=== PATIENT | female | born 1940 | race Caucasian/White ===

== ENCOUNTER 2019-04-02 18:15 | Inpatient (IN) ==
[2019-04-02] MEDS ORDERED: VANCOMYCIN INJ 1,000 MG in SODIUM CHLORIDE 0.9% 250 ML IV ONE (19:30)
[2019-04-02] MEDS ORDERED: VANCOMYCIN 1,000 MG VIAL ONE (20:04)
[2019-04-02 20:17] LABS: Basophils # 0.1 10*3/uL (0.0-0.2); Basophils % 0.4 % (0.0-0.8); Eosinophils # 0.1 10*3/uL (0.0-0.87); Eosinophils % 0.4 % (0.00-10.9); Hematocrit 30.4 VOL% (35.7-47.0); Hemoglobin 10.1 GM/DL (12.0-16.0); Immature Granulocytes % 0.6 %; Lymphocytes # 3.3 10*3/uL (1.4-4.0); Lymphocytes % 19.2 % (21.3-54.2); Mean Corpuscular HGB Conc 33.2 GM/DL (32-36); Mean Corpuscular Volume 94.1 FL (87-102); Mean Platelet Volume 9.9 FL (9.6-12.0); Monocytes % 9.4 % (1.7-12.7); Platelet Count 282 T/CUMM (130-400); Red Blood Count 3.23 MC/CUMM (3.8-5.5); Red Cell Distribution Width 12.9 % (9.3-17.3); White Blood Count 17.4 T/CUMM (4-12)
[2019-04-02 20:35] LABS: Osmolality,Calculated 265.8 MOS/KG (273-304)
[2019-04-02] MEDS ORDERED: ASPIRIN EC 325 MG TABLET PO STA (23:54)
[2019-04-03] MEDS ORDERED: SODIUM CHLORIDE 0.9% 1,000 ML IV STA (01:11)
[2019-04-03] MEDS ORDERED: ONDANSETRON 4 MG/2 ML VIAL IV PRN (02:20)
[2019-04-03] MEDS ORDERED: ACETAMINOPHEN 325 MG TABLET PO PRN (02:20)
[2019-04-03] MEDS ORDERED: HYDROmorphone 2 MG/1 ML VIAL IV PRN (02:20)
[2019-04-03] MEDS ORDERED: PROMETHAZINE INJ 12.5 MG in SODIUM CHLORIDE 0.9% 50 ML IV PRN (02:20)
[2019-04-03] MEDS: SODIUM CHLORIDE 0.9% 1,000 ML IV SCH ×4 (02:33→21:32)
[2019-04-03] MEDS: PIPERACILLIN/TAZOBACTAM 3,375 MG in SODIUM CHLORIDE 0.9% 100 ML IV SCH ×2 (02:33→09:44)
[2019-04-03 06:36] LABS: Basophils # 0.1 10*3/uL (0.0-0.2); Basophils % 0.5 % (0.0-0.8); Eosinophils % 0.1 % (0.00-10.9); Hematocrit 27.7 VOL% (35.7-47.0); Hemoglobin 9.3 GM/DL (12.0-16.0); Immature Granulocytes % 0.5 %; Immature Granulocytes Absolute 0.08 #; Lymphocytes # 3.6 10*3/uL (1.4-4.0); Lymphocytes % 20.5 % (21.3-54.2); Mean Corpuscular HGB Conc 33.6 GM/DL (32-36); Mean Corpuscular Volume 94.2 FL (87-102); Mean Platelet Volume 10.2 FL (9.6-12.0); Monocytes % 10.2 % (1.7-12.7); Neutrophils % 68.2 % (38.7-73.9); Platelet Count 255 T/CUMM (130-400); Red Blood Count 2.94 MC/CUMM (3.8-5.5); Red Cell Distribution Width 12.8 % (9.3-17.3); White Blood Count 17.4 T/CUMM (4-12)
[2019-04-03 06:53] LABS: Albumin 2.7 G/DL (3.4-5.0); Bilirubin,Total 1.1 MG/DL (0.2-1.0); Calcium 8.4 MG/DL (8.5-10.1); Osmolality,Calculated 272.2 MOS/KG (273-304); Total Protein 9.2 G/DL (6.4-8.3)
[2019-04-03] MEDS: POTASSIUM CHLORIDE 20 MEQ TABLET PO PRN (09:45)
[2019-04-03] MEDS: ENOXAPARIN 40 MG/0.4 ML SYRINGE SUBCUT SCH (09:45)
[2019-04-03] MEDS: cefTRIAXone 1,000 MG in SYRINGE 1 EACH IV SCH (12:07)
[2019-04-03] MEDS ORDERED: VANCOMYCIN INJ 1,000 MG in SODIUM CHLORIDE 0.9% 250 ML IV SCH (16:00)
[2019-04-04] MEDS: SODIUM CHLORIDE 0.9% 1,000 ML IV SCH (02:00)
[2019-04-04 06:19] LABS: Basophils # 0.1 10*3/uL (0.0-0.2); Basophils % 0.7 % (0.0-0.8); Eosinophils # 0.3 10*3/uL (0.0-0.87); Eosinophils % 2.1 % (0.00-10.9); Hematocrit 28.5 VOL% (35.7-47.0); Hemoglobin 9.4 GM/DL (12.0-16.0); Immature Granulocytes % 0.4 %; Immature Granulocytes Absolute 0.06 #; Lymphocytes # 3.3 10*3/uL (1.4-4.0); Lymphocytes % 21.2 % (21.3-54.2); Mean Corpuscular Volume 96.3 FL (87-102); Monocytes % 9.5 % (1.7-12.7); Neutrophils % 66.1 % (38.7-73.9); Platelet Count 258 T/CUMM (130-400); Red Blood Count 2.96 MC/CUMM (3.8-5.5); Red Cell Distribution Width 12.9 % (9.3-17.3); White Blood Count 15.3 T/CUMM (4-12)
[2019-04-04 06:28] LABS: Calcium 8.3 MG/DL (8.5-10.1); Osmolality,Calculated 270.1 MOS/KG (273-304)
[2019-04-04] MEDS: ENOXAPARIN 40 MG/0.4 ML SYRINGE SUBCUT SCH (11:43)
[2019-04-04] MEDS: cefTRIAXone 1,000 MG in SYRINGE 1 EACH IV SCH (11:44)
[2019-04-04] MEDS: FLUTICASONE 50 MCG NASAL SPRAY 16 GM BOTTLE BOTH NARES SCH ×2 (15:51→21:53)
[2019-04-05 05:43] LABS: Basophils # 0.1 10*3/uL (0.0-0.2); Basophils % 0.8 % (0.0-0.8); Eosinophils # 0.5 10*3/uL (0.0-0.87); Eosinophils % 3.7 % (0.00-10.9); Hematocrit 27.5 VOL% (35.7-47.0); Hemoglobin 8.9 GM/DL (12.0-16.0); Immature Granulocytes % 0.4 %; Immature Granulocytes Absolute 0.05 #; Lymphocytes # 3.8 10*3/uL (1.4-4.0); Lymphocytes % 30.7 % (21.3-54.2); Mean Corpuscular HGB Conc 32.4 GM/DL (32-36); Mean Corpuscular Volume 94.8 FL (87-102); Mean Platelet Volume 10.1 FL (9.6-12.0); Monocytes % 9.7 % (1.7-12.7); Neutrophils % 54.7 % (38.7-73.9); Platelet Count 269 T/CUMM (130-400); Red Cell Distribution Width 12.4 % (9.3-17.3); White Blood Count 12.3 T/CUMM (4-12)
[2019-04-05] MEDS: FLUTICASONE 50 MCG NASAL SPRAY 16 GM BOTTLE BOTH NARES SCH ×2 (08:48→21:42)
[2019-04-05] MEDS: cefTRIAXone 1,000 MG in SYRINGE 1 EACH IV SCH (08:48)
[2019-04-05] MEDS: ENOXAPARIN 40 MG/0.4 ML SYRINGE SUBCUT SCH (08:48)
[2019-04-06 06:56] LABS: Basophils # 0.1 10*3/uL (0.0-0.2); Basophils % 1.1 % (0.0-0.8); Eosinophils # 0.4 10*3/uL (0.0-0.87); Eosinophils % 4.1 % (0.00-10.9); Hematocrit 28.2 VOL% (35.7-47.0); Hemoglobin 9.5 GM/DL (12.0-16.0); Immature Granulocytes % 0.3 %; Immature Granulocytes Absolute 0.03 #; Lymphocytes % 32.3 % (21.3-54.2); Mean Corpuscular HGB Conc 33.7 GM/DL (32-36); Mean Corpuscular Volume 93.4 FL (87-102); Mean Platelet Volume 9.9 FL (9.6-12.0); Monocytes % 10.9 % (1.7-12.7); Neutrophils % 51.3 % (38.7-73.9); Platelet Count 304 T/CUMM (130-400); Red Blood Count 3.02 MC/CUMM (3.8-5.5); Red Cell Distribution Width 12.3 % (9.3-17.3); White Blood Count 9.2 T/CUMM (4-12)
[2019-04-06 07:22] LABS: Albumin 2.6 G/DL (3.4-5.0); Bilirubin,Total 1.2 MG/DL (0.2-1.0); Calcium 8.9 MG/DL (8.5-10.1); Osmolality,Calculated 267.1 MOS/KG (273-304); Total Protein 9.8 G/DL (6.4-8.3)
[2019-04-06] MEDS: cefTRIAXone 1,000 MG in SYRINGE 1 EACH IV SCH (09:17)
[2019-04-06] MEDS: CHOLECALCIFEROL 5,000 UNIT TABLET PO SCH (09:18)
[2019-04-06] MEDS: OMEGA 3 ACID ETHYL ESTERS 1 GM CAPSULE PO SCH (09:18)
[2019-04-06] MEDS: DILTIAZEM CD 180 MG CAPSULE PO SCH (09:19)
[2019-04-06] MEDS: FLUTICASONE 50 MCG NASAL SPRAY 16 GM BOTTLE BOTH NARES SCH ×2 (09:19→20:08)
[2019-04-06] MEDS: ENOXAPARIN 40 MG/0.4 ML SYRINGE SUBCUT SCH (09:21)
[2019-04-06] MEDS: OLMESARTAN 20 MG TABLET PO SCH (15:11)
[2019-04-06] MEDS: hydroCHLOROthiazide 12.5 MG CAPSULE PO SCH (15:13)
[2019-04-07 07:14] LABS: Calcium 9.1 MG/DL (8.5-10.1); Osmolality,Calculated 267.1 MOS/KG (273-304)
[2019-04-07 07:19] LABS: Alanine Aminotransferase < 9 U/L (13-56); Albumin 2.8 G/DL (3.4-5.0); Alkaline Phosphatase 57 U/L (45-117); Aspartate Amino Transferase 11 U/L (0-37); Bilirubin,Total < 0.39 MG/DL (0.2-1.0); Blood Urea Nitrogen 10 MG/DL (7-18); Calcium 8.7 MG/DL (8.5-10.1); Estimated Glom Filtration Rate 58 ML/MIN; Glucose 93 MG/DL (74-106); Osmolality,Calculated 268.1 MOS/KG (273-304); Total Protein 10.4 G/DL (6.4-8.3)
[2019-04-07] MEDS: hydroCHLOROthiazide 12.5 MG CAPSULE PO SCH (08:39)
[2019-04-07] MEDS: CHOLECALCIFEROL 5,000 UNIT TABLET PO SCH (08:39)
[2019-04-07] MEDS: OMEGA 3 ACID ETHYL ESTERS 1 GM CAPSULE PO SCH (08:40)
[2019-04-07] MEDS: cefTRIAXone 1,000 MG in SYRINGE 1 EACH IV SCH (08:40)
[2019-04-07] MEDS: DILTIAZEM CD 180 MG CAPSULE PO SCH (08:40)
[2019-04-07] MEDS: POTASSIUM CHLORIDE 20 MEQ TABLET PO PRN ×2 (08:40→17:41)
[2019-04-07] MEDS: ENOXAPARIN 40 MG/0.4 ML SYRINGE SUBCUT SCH (08:41)
[2019-04-07] MEDS: FLUTICASONE 50 MCG NASAL SPRAY 16 GM BOTTLE BOTH NARES SCH ×2 (08:41→21:04)
[2019-04-07] MEDS: OLMESARTAN 20 MG TABLET PO SCH (08:42)
[2019-04-07 09:46] LABS: Basophils # 0.1 10*3/uL (0.0-0.2); Basophils % 1.3 % (0.0-0.8); Eosinophils # 0.4 10*3/uL (0.0-0.87); Eosinophils % 4.7 % (0.00-10.9); Hematocrit 31.5 VOL% (35.7-47.0); Hemoglobin 9.9 GM/DL (12.0-16.0); Immature Granulocytes % 0.3 %; Immature Granulocytes Absolute 0.03 #; Lymphocytes # 3.6 10*3/uL (1.4-4.0); Mean Corpuscular HGB Conc 31.4 GM/DL (32-36); Mean Corpuscular Volume 96.3 FL (87-102); Mean Platelet Volume 10.2 FL (9.6-12.0); Monocytes % 9.7 % (1.7-12.7); Platelet Count 332 T/CUMM (130-400); Red Blood Count 3.27 MC/CUMM (3.8-5.5); Red Cell Distribution Width 12.5 % (9.3-17.3); White Blood Count 9.4 T/CUMM (4-12)
[2019-04-08 04:59] VITALS: BP 135/81
[2019-04-08 06:41] LABS: Basophils # 0.1 10*3/uL (0.0-0.2); Basophils % 1.1 % (0.0-0.8); Eosinophils # 0.4 10*3/uL (0.0-0.87); Eosinophils % 4.7 % (0.00-10.9); Hematocrit 31.5 VOL% (35.7-47.0); Hemoglobin 9.5 GM/DL (12.0-16.0); Immature Granulocytes % 0.3 %; Immature Granulocytes Absolute 0.03 #; Lymphocytes # 3.9 10*3/uL (1.4-4.0); Lymphocytes % 41.5 % (21.3-54.2); Mean Corpuscular HGB Conc 30.2 GM/DL (32-36); Mean Corpuscular Volume 99.4 FL (87-102); Mean Platelet Volume 9.9 FL (9.6-12.0); Monocytes % 9.4 % (1.7-12.7); Platelet Count 328 T/CUMM (130-400); Red Blood Count 3.17 MC/CUMM (3.8-5.5); Red Cell Distribution Width 12.5 % (9.3-17.3); White Blood Count 9.4 T/CUMM (4-12)
[2019-04-08 07:01] LABS: Eosinophils 7 % (0-10); Hypochromasia 1+; Lymphocytes 34 % (20-55); Ovalocytes Slight; Platelet Estimate Adequate; Segmented Neutrophils 46 % (50-85); Total Cells Counted 100
[2019-04-08 07:08] LABS: Albumin 2.6 G/DL (3.4-5.0); Bilirubin,Total 1.1 MG/DL (0.2-1.0); Calcium 9.1 MG/DL (8.5-10.1); Osmolality,Calculated 265.2 MOS/KG (273-304); Total Protein 10.2 G/DL (6.4-8.3)
[2019-04-08] MEDS: ENOXAPARIN 40 MG/0.4 ML SYRINGE SUBCUT SCH (08:23)
[2019-04-08] MEDS: OLMESARTAN 20 MG TABLET PO SCH (08:23)
[2019-04-08] MEDS: CHOLECALCIFEROL 5,000 UNIT TABLET PO SCH (08:23)
[2019-04-08] MEDS: OMEGA 3 ACID ETHYL ESTERS 1 GM CAPSULE PO SCH (08:23)
[2019-04-08] MEDS: DILTIAZEM CD 180 MG CAPSULE PO SCH (08:23)
[2019-04-08] MEDS: hydroCHLOROthiazide 12.5 MG CAPSULE PO SCH (08:23)
[2019-04-08] MEDS: FLUTICASONE 50 MCG NASAL SPRAY 16 GM BOTTLE BOTH NARES SCH (08:26)
[2019-04-08] MEDS: cefTRIAXone 1,000 MG in SYRINGE 1 EACH IV SCH (08:26)
== END 2019-04-08 10:20 | disposition home or self-care (01) | DRG 603 ==
LOC: N.ED 18:15 → N.EDINP 04-03 00:52 → SUATTDRO 04-03 00:52 → N.2E 04-03 01:16
PROVIDERS: ADMIT Internal Medicine; ATTEND Internal Medicine

== ENCOUNTER 2019-12-21 09:50 | Inpatient (IN) ==
[2019-12-21 10:47] LABS: Basophils # 0.1 10*3/uL (0.0-0.2); Basophils % 0.7 % (0.0-0.8); Eosinophils % 0.1 % (0.00-10.9); Hemoglobin 8.2 GM/DL (12.0-16.0); Immature Granulocytes % 0.4 %; Immature Granulocytes Absolute 0.05 #; Lymphocytes # 2.4 10*3/uL (1.4-4.0); Lymphocytes % 19.4 % (21.3-54.2); Mean Corpuscular HGB Conc 32.8 GM/DL (32-36); Mean Corpuscular Volume 96.9 FL (87-102); Mean Platelet Volume 8.9 FL (9.6-12.0); Monocytes % 6.4 % (1.7-12.7); Platelet Count 405 T/CUMM (130-400); Red Blood Count 2.58 MC/CUMM (3.8-5.5); Red Cell Distribution Width 13.4 % (9.3-17.3); White Blood Count 12.4 T/CUMM (4-12)
[2019-12-21 11:01] LABS: Alanine Aminotransferase < 6 U/L (13-56); Albumin 2.4 G/DL (3.4-5.0); Alkaline Phosphatase 62 U/L (45-117); Amylase 32 U/L (25-115); Aspartate Amino Transferase 22 U/L (0-37); Bilirubin,Total < 0.39 MG/DL (0.2-1.0); Blood Urea Nitrogen 13 MG/DL (7-18); Calcium 9.1 MG/DL (8.5-10.1); Estimated Glom Filtration Rate 39 ML/MIN; Glucose 107 MG/DL (74-106); Osmolality,Calculated 267.2 MOS/KG (273-304)
[2019-12-21] MEDS ORDERED: SODIUM CHLORIDE 0.9% 1,000 ML IV STA (12:04)
[2019-12-21] MEDS ORDERED: ONDANSETRON 4 MG/2 ML VIAL IV STA (12:08)
[2019-12-21] MEDS ORDERED: MORPHINE 4 MG/1 ML VIAL IV ONE (12:08)
[2019-12-21 12:14] LABS: Bacteria,Urine Occasional /HPF (Few); Bilirubin,Urine Negative (Negative); Blood, Urine Small mg/dL (Negative); Glucose,Urine (UA) Negative (Negative); Hyaline Casts,Urine 3 /LPF (0-3); Ketones,Urine Negative (Negative); Mucus,Urine Occasional /LPF (Occasional); Nitrite,Urine Negative (Negative); Protein,Urine Negative; RBC,Urine 15 /HPF (0-4); Squamous Epithelial Cell,Urine Occasional /HPF (0-10); Urine Appearance CLEAR (Clear); Urine Color Yellow (Yellow); Urine Specific Gravity > 1.060 (1.001-1.035); Urine Urobilinogen < 2.0 EU/DL (0.2-1.0); WBC,Urine <1 /HPF (0-6)
[2019-12-21] MEDS ORDERED: LACTULOSE 20 GM/30 ML UDCUP PO PRN (14:07)
[2019-12-21] MEDS ORDERED: MORPHINE 4 MG/1 ML VIAL IV PRN (14:07)
[2019-12-21] MEDS ORDERED: LOPERAMIDE 2 MG CAPSULE PO PRN ×2 (14:07)
[2019-12-21] MEDS ORDERED: ALUMINUM/MAGNES/SIMETH MAX STR 30 ML UDCUP PO PRN (14:07)
[2019-12-21] MEDS ORDERED: MYLANTA/LIDO VISC 2:1 300 ML BOTTLE SWISH/SWAL PRN (14:07)
[2019-12-21] MEDS ORDERED: ACETAMINOPHEN 325 MG TABLET PO PRN (14:07)
[2019-12-21] MEDS ORDERED: TEMAZEPAM 7.5 MG CAPSULE PO PRN (14:07)
[2019-12-21] MEDS ORDERED: BENZTROPINE 2 MG/2 ML AMP IV PRN (14:07)
[2019-12-21] MEDS ORDERED: MYLANTA/LIDO VISC 2:1 300 ML BOTTLE SWISH/SPIT PRN (14:07)
[2019-12-21] MEDS ORDERED: diphenhydrAMINE CAP 25 MG CAPSULE PO PRN (14:07)
[2019-12-21] MEDS: SODIUM CHLORIDE 0.45% 1,000 ML IV SCH (14:39)
[2019-12-21] MEDS: traMADol 50 MG TABLET PO PRN ×2 (14:41→20:18)
[2019-12-21] MEDS: MORPHINE 4 MG/1 ML VIAL IV PRN (18:19)
[2019-12-21] MEDS: ALPRAZolam 0.25 MG TABLET PO PRN (20:20)
[2019-12-22 06:45] LABS: Basophils # 0.1 10*3/uL (0.0-0.2); Basophils % 0.9 % (0.0-0.8); Eosinophils # 0.1 10*3/uL (0.0-0.87); Eosinophils % 1.1 % (0.00-10.9); Hemoglobin 7.1 GM/DL (12.0-16.0); Immature Granulocytes % 0.5 %; Immature Granulocytes Absolute 0.06 #; Lymphocytes % 24.8 % (21.3-54.2); Mean Corpuscular HGB Conc 32.3 GM/DL (32-36); Mean Corpuscular Volume 98.2 FL (87-102); Neutrophils % 59.7 % (38.7-73.9); Platelet Count 342 T/CUMM (130-400); Red Blood Count 2.24 MC/CUMM (3.8-5.5); Red Cell Distribution Width 13.6 % (9.3-17.3); White Blood Count 12.2 T/CUMM (4-12)
[2019-12-22 07:24] LABS: Alanine Aminotransferase < 6 U/L (13-56); Albumin 1.9 G/DL (3.4-5.0); Alkaline Phosphatase 53 U/L (45-117); Aspartate Amino Transferase 17 U/L (0-37); Blood Urea Nitrogen 17 MG/DL (7-18); Calcium 8.4 MG/DL (8.5-10.1); Estimated Glom Filtration Rate 39 ML/MIN; Glucose 80 MG/DL (74-106); Total Protein 9.1 G/DL (6.4-8.3)
[2019-12-22] MEDS: SODIUM CHLORIDE 0.45% 1,000 ML IV SCH (11:57)
[2019-12-22] MEDS: traMADol 50 MG TABLET PO PRN (15:33)
[2019-12-22] MEDS: MORPHINE 4 MG/1 ML VIAL IV PRN (17:01)
[2019-12-22] MEDS: ONDANSETRON 4 MG/2 ML VIAL IV PRN (17:02)
[2019-12-23 08:21] LABS: Basophils # 0.1 10*3/uL (0.0-0.2); Basophils % 0.5 % (0.0-0.8); Eosinophils % 0.2 % (0.00-10.9); Hematocrit 22.2 VOL% (35.7-47.0); Immature Granulocytes % 0.7 %; Immature Granulocytes Absolute 0.12 #; Lymphocytes # 2.9 10*3/uL (1.4-4.0); Lymphocytes % 18.1 % (21.3-54.2); Mean Corpuscular HGB Conc 31.5 GM/DL (32-36); Mean Corpuscular Volume 98.7 FL (87-102); Mean Platelet Volume 9.5 FL (9.6-12.0); Monocytes % 10.6 % (1.7-12.7); Neutrophils % 69.9 % (38.7-73.9); Platelet Count 330 T/CUMM (130-400); Red Blood Count 2.25 MC/CUMM (3.8-5.5); Red Cell Distribution Width 13.4 % (9.3-17.3); White Blood Count 16.1 T/CUMM (4-12)
[2019-12-23 08:35] LABS: Alanine Aminotransferase < 6 U/L (13-56); Albumin 1.9 G/DL (3.4-5.0); Alkaline Phosphatase 59 U/L (45-117); Aspartate Amino Transferase 17 U/L (0-37); Blood Urea Nitrogen 16 MG/DL (7-18); Calcium 8.2 MG/DL (8.5-10.1); Estimated Glom Filtration Rate 56 ML/MIN; Glucose 99 MG/DL (74-106); Osmolality,Calculated 268.2 MOS/KG (273-304); Total Protein 9.4 G/DL (6.4-8.3)
[2019-12-23] MEDS: MAGNESIUM HYDROXIDE SUSP 30 ML UDCUP PO PRN (08:50)
[2019-12-23] MEDS: MORPHINE 4 MG/1 ML VIAL IV PRN ×3 (08:55→22:10)
[2019-12-23] MEDS: ONDANSETRON 4 MG/2 ML VIAL IV PRN ×2 (08:56→16:56)
[2019-12-23 09:33] LABS: Immunoglobulin A < 31 MG/DL (70-400); Immunoglobulin G 5090 MG/DL (700-1600); Immunoglobulin M < 21 MG/DL (40-230)
[2019-12-23] MEDS: SODIUM CHLORIDE 0.45% 1,000 ML IV SCH (11:07)
[2019-12-23] MEDS ORDERED: PROMETHAZINE INJ 25 MG in SODIUM CHLORIDE 0.9% 50 ML IV PRN (12:24)
[2019-12-24 08:57] LABS: Basophils # 0.1 10*3/uL (0.0-0.2); Basophils % 0.5 % (0.0-0.8); Eosinophils # 0.1 10*3/uL (0.0-0.87); Eosinophils % 0.4 % (0.00-10.9); Hematocrit 21.8 VOL% (35.7-47.0); Hemoglobin 7.3 GM/DL (12.0-16.0); Immature Granulocytes % 0.8 %; Immature Granulocytes Absolute 0.14 #; Lymphocytes # 2.5 10*3/uL (1.4-4.0); Lymphocytes % 14.4 % (21.3-54.2); Mean Corpuscular HGB Conc 33.5 GM/DL (32-36); Mean Corpuscular Volume 96.5 FL (87-102); Monocytes % 10.2 % (1.7-12.7); NRBC # 0.02 10*3/uL; Neutrophils % 73.7 % (38.7-73.9); Platelet Count 328 T/CUMM (130-400); Red Blood Count 2.26 MC/CUMM (3.8-5.5); Red Cell Distribution Width 13.2 % (9.3-17.3); White Blood Count 17.1 T/CUMM (4-12)
[2019-12-24 09:08] LABS: Immunoglobulin A (Chem) < 31 MG/DL (70-400); Immunoglobulin G (Chem) 5090 MG/DL (700-1600)
[2019-12-24 09:09] LABS: Immunoglobulin M (Chem) < 21 MG/DL (40-230)
[2019-12-24 09:19] LABS: Alanine Aminotransferase < 6 U/L (13-56); Albumin 1.7 G/DL (3.4-5.0); Alkaline Phosphatase 65 U/L (45-117); Aspartate Amino Transferase 17 U/L (0-37); Blood Urea Nitrogen 14 MG/DL (7-18); Estimated Glom Filtration Rate 56 ML/MIN; Glucose 104 MG/DL (74-106); Osmolality,Calculated 264.5 MOS/KG (273-304); Total Protein 9.4 G/DL (6.4-8.3)
[2019-12-24] MEDS: ONDANSETRON 4 MG/2 ML VIAL IV PRN (11:07)
[2019-12-24] MEDS: MORPHINE 4 MG/1 ML VIAL IV PRN ×4 (11:11→21:23)
[2019-12-24] MEDS: MAGNESIUM HYDROXIDE SUSP 30 ML UDCUP PO PRN (11:12)
[2019-12-24] MEDS: SODIUM CHLORIDE 0.45% 1,000 ML IV SCH ×2 (18:04→22:01)
[2019-12-25] MEDS: SODIUM CHLORIDE 0.45% 1,000 ML IV SCH ×3 (06:04→20:29)
[2019-12-25 06:44] LABS: Basophils # 0.1 10*3/uL (0.0-0.2); Basophils % 0.5 % (0.0-0.8); Eosinophils # 0.1 10*3/uL (0.0-0.87); Eosinophils % 0.6 % (0.00-10.9); Hematocrit 22.1 VOL% (35.7-47.0); Hemoglobin 7.1 GM/DL (12.0-16.0); Immature Granulocytes % 0.9 %; Immature Granulocytes Absolute 0.15 #; Lymphocytes # 2.5 10*3/uL (1.4-4.0); Lymphocytes % 15.2 % (21.3-54.2); Mean Corpuscular HGB Conc 32.1 GM/DL (32-36); Mean Corpuscular Volume 96.5 FL (87-102); Mean Platelet Volume 9.6 FL (9.6-12.0); Monocytes % 10.2 % (1.7-12.7); NRBC # 0.03 10*3/uL; Neutrophils % 72.6 % (38.7-73.9); Platelet Count 361 T/CUMM (130-400); Red Blood Count 2.29 MC/CUMM (3.8-5.5); Red Cell Distribution Width 13.2 % (9.3-17.3); White Blood Count 16.3 T/CUMM (4-12)
[2019-12-25 06:47] LABS: Alanine Aminotransferase < 6 U/L (13-56); Albumin 1.7 G/DL (3.4-5.0); Alkaline Phosphatase 65 U/L (45-117); Aspartate Amino Transferase 19 U/L (0-37); Blood Urea Nitrogen 15 MG/DL (7-18); Calcium 8.2 MG/DL (8.5-10.1); Estimated Glom Filtration Rate 56 ML/MIN; Glucose 90 MG/DL (74-106); Osmolality,Calculated 262.7 MOS/KG (273-304); Total Protein 9.5 G/DL (6.4-8.3)
[2019-12-25] MEDS: MORPHINE 4 MG/1 ML VIAL IV PRN ×2 (09:24→17:45)
[2019-12-25] MEDS ORDERED: SODIUM CHLORIDE 0.9% 1,000 ML IV PRN (10:29)
[2019-12-26] MEDS: MORPHINE 4 MG/1 ML VIAL IV PRN ×5 (02:54→19:18)
[2019-12-26 05:26] LABS: Total Protein (Chem) 9.3 G/DL (6.4-8.3)
[2019-12-26 05:34] LABS: Mean Platelet Volume 8.9 FL (9.6-12.0); NRBC # 0.03 10*3/uL
[2019-12-26 05:46] LABS: Basophils # 0.1 10*3/uL (0.0-0.2); Basophils % 0.7 % (0.0-0.8); Eosinophils # 0.1 10*3/uL (0.0-0.87); Eosinophils % 1.1 % (0.00-10.9); Hematocrit 26.9 VOL% (35.7-47.0); Immature Granulocytes Absolute 0.13 #; Lymphocytes # 2.1 10*3/uL (1.4-4.0); Lymphocytes % 15.5 % (21.3-54.2); Mean Corpuscular HGB Conc 33.8 GM/DL (32-36); Mean Corpuscular Volume 91.8 FL (87-102); Monocytes % 11.3 % (1.7-12.7); Neutrophils % 70.4 % (38.7-73.9); Platelet Count 299 T/CUMM (130-400); Red Cell Distribution Width 14.2 % (9.3-17.3); White Blood Count 13.3 T/CUMM (4-12)
[2019-12-26 05:49] LABS: Hemoglobin 9.1 GM/DL (12.0-16.0); Red Blood Count 2.93 MC/CUMM (3.8-5.5)
[2019-12-26 06:01] LABS: Alanine Aminotransferase < 6 U/L (13-56); Albumin 1.5 G/DL (3.4-5.0); Alkaline Phosphatase 60 U/L (45-117); Aspartate Amino Transferase 18 U/L (0-37); Blood Urea Nitrogen 16 MG/DL (7-18); Calcium 7.9 MG/DL (8.5-10.1); Estimated Glom Filtration Rate 64 ML/MIN; Glucose 83 MG/DL (74-106); Osmolality,Calculated 263.5 MOS/KG (273-304)
[2019-12-26 08:52] LABS: Albumin (SPE) 2.3 G/DL (3.2-5.3); Albumin (SPE) Rel % 25.1 %; Alpha 1 (SPE) 0.4 G/DL (0.1-0.4); Alpha 1 (SPE) Rel % 4.7 %; Alpha 2 (SPE) 0.9 G/DL (0.4-1.0); Alpha 2 (SPE) Rel % 9.7 %; Beta (SPE) 0.7 G/DL (0.5-1.1); Beta (SPE) Rel % 7.1 %
[2019-12-26] MEDS ORDERED: HYDROXYCHLOROQUINE 200 MG TABLET PO SCH (09:00)
[2019-12-26] MEDS ORDERED: predniSONE 5 MG TABLET PO SCH (09:00)
[2019-12-26] MEDS ORDERED: DILTIAZEM CD 180 MG CAPSULE PO SCH (09:00)
[2019-12-26 09:02] LABS: Gamma (SPE) Rel % 53.4 %
[2019-12-26] MEDS: SODIUM CHLORIDE 0.45% 1,000 ML IV SCH (09:03)
[2019-12-26] MEDS: DEXT 5% NACL 0.45% KCL 20 MEQ 20 MEQ/1,000 ML BAG IV SCH (09:16)
[2019-12-26] MEDS: fentaNYL 12 MCG/HR PATCH TRANSDERM SCH (10:37)
[2019-12-26 12:29] LABS: Immuno Free Light Chain Lambda 0.16 MG/DL (0.57-2.63)
[2019-12-26] MEDS: ALPRAZolam 0.25 MG TABLET PO PRN (19:18)
[2019-12-26] MEDS: DILTIAZEM CD 180 MG CAPSULE PO SCH (21:20)
[2019-12-26] MEDS: predniSONE 5 MG TABLET PO SCH (21:20)
[2019-12-27 05:44] LABS: Basophils # 0.1 10*3/uL (0.0-0.2); Basophils % 0.5 % (0.0-0.8); Eosinophils # 0.2 10*3/uL (0.0-0.87); Eosinophils % 1.5 % (0.00-10.9); Hematocrit 30.4 VOL% (35.7-47.0); Hemoglobin 10.2 GM/DL (12.0-16.0); Immature Granulocytes % 0.9 %; Immature Granulocytes Absolute 0.13 #; Lymphocytes # 2.6 10*3/uL (1.4-4.0); Lymphocytes % 18.4 % (21.3-54.2); Mean Corpuscular HGB Conc 33.6 GM/DL (32-36); Mean Platelet Volume 9.1 FL (9.6-12.0); Monocytes % 12.1 % (1.7-12.7); Neutrophils % 66.6 % (38.7-73.9); Platelet Count 330 T/CUMM (130-400); Red Blood Count 3.27 MC/CUMM (3.8-5.5); White Blood Count 14.2 T/CUMM (4-12)
[2019-12-27 06:22] LABS: Alanine Aminotransferase < 6 U/L (13-56); Albumin 1.5 G/DL (3.4-5.0); Alkaline Phosphatase 63 U/L (45-117); Aspartate Amino Transferase 18 U/L (0-37); Blood Urea Nitrogen 12 MG/DL (7-18); Estimated Glom Filtration Rate 76 ML/MIN; Glucose 88 MG/DL (74-106); Osmolality,Calculated 258.8 MOS/KG (273-304); Total Protein 9.8 G/DL (6.4-8.3)
[2019-12-27] MEDS: MORPHINE 4 MG/1 ML VIAL IV PRN ×3 (09:31→21:00)
[2019-12-27 12:19] LABS: Immuno Free Light Chain Kappa 106.26 MG/DL (0.33-1.94); Immuno Free Light Chain Ratio 664.13 MG/DL (0.26-1.65)
[2019-12-27] MEDS: DEXT 5% NACL 0.45% KCL 20 MEQ 20 MEQ/1,000 ML BAG IV SCH ×2 (15:21→15:22)
[2019-12-27] MEDS: predniSONE 5 MG TABLET PO SCH (21:01)
[2019-12-27] MEDS: ALPRAZolam 0.25 MG TABLET PO PRN (21:01)
[2019-12-27] MEDS: DILTIAZEM CD 180 MG CAPSULE PO SCH (21:01)
[2019-12-28 06:42] LABS: Basophils # 0.1 10*3/uL (0.0-0.2); Basophils % 0.6 % (0.0-0.8); Eosinophils # 0.4 10*3/uL (0.0-0.87); Eosinophils % 2.6 % (0.00-10.9); Hematocrit 27.3 VOL% (35.7-47.0); Immature Granulocytes % 0.8 %; Immature Granulocytes Absolute 0.11 #; Lymphocytes # 2.6 10*3/uL (1.4-4.0); Lymphocytes % 18.6 % (21.3-54.2); Mean Corpuscular Volume 94.8 FL (87-102); Mean Platelet Volume 9.1 FL (9.6-12.0); Monocytes % 12.8 % (1.7-12.7); Neutrophils % 64.6 % (38.7-73.9); Platelet Count 273 T/CUMM (130-400); Red Blood Count 2.88 MC/CUMM (3.8-5.5); Red Cell Distribution Width 13.6 % (9.3-17.3); White Blood Count 13.9 T/CUMM (4-12)
[2019-12-28] MEDS ORDERED: fentaNYL 100 MCG/2 ML VIAL ONE ×2 (06:42→08:03)
[2019-12-28] MEDS ORDERED: PHENYLEPHRINE 10 MG/1 ML VIAL IV ONE (06:42)
[2019-12-28 06:50] LABS: Alanine Aminotransferase < 6 U/L (13-56); Albumin 1.3 G/DL (3.4-5.0); Alkaline Phosphatase 57 U/L (45-117); Aspartate Amino Transferase 18 U/L (0-37); Blood Urea Nitrogen 10 MG/DL (7-18); Calcium 7.5 MG/DL (8.5-10.1); Estimated Glom Filtration Rate 79 ML/MIN; Glucose 91 MG/DL (74-106); Osmolality,Calculated 258.8 MOS/KG (273-304); Total Protein 8.7 G/DL (6.4-8.3)
[2019-12-28] MEDS ORDERED: BUPIVACAINE MPF 0.25% 30 ML VIAL ONE (07:05)
[2019-12-28] MEDS ORDERED: LIDOCAINE 1% 5 ML VIAL ONE (07:05)
[2019-12-28] MEDS ORDERED: CLINDAMYCIN INJ 50 ML IV ONE (08:00)
[2019-12-28] MEDS ORDERED: LEVOFLOXACIN INJ 100 ML IV ONE (08:03)
[2019-12-28] MEDS ORDERED: SODIUM CHLORIDE 0.9% 1,000 ML IV PRN ×2 (08:12→15:12)
[2019-12-28] MEDS ORDERED: DEXAMETHASONE 4 MG/1 ML VIAL ONE (08:48)
[2019-12-28] MEDS ORDERED: ROCURONIUM 50 MG/5 ML VIAL IV ONE (08:48)
[2019-12-28] MEDS ORDERED: ETOMIDATE 40 MG/20 ML VIAL IV ONE (08:48)
[2019-12-28] MEDS ORDERED: LIDOCAINE 2% 5 ML VIAL ONE (08:48)
[2019-12-28] MEDS ORDERED: SODIUM CHLORIDE 0.9% 1,000 ML IV ONE (08:48)
[2019-12-28] MEDS ORDERED: ONDANSETRON 4 MG/2 ML VIAL ONE (08:48)
[2019-12-28] MEDS ORDERED: SUCCINYLCHOLINE 200 MG/10 ML VIAL ONE (08:48)
[2019-12-28] MEDS ORDERED: LACTATED RINGERS 1,000 ML IV ONE (08:48)
[2019-12-28] MEDS ORDERED: SEVOFLURANE 1 UNIT/15 MINUTE INH ONE (08:55)
[2019-12-28] MEDS ORDERED: SODIUM CHLORIDE 0.9% 100 ML IV ONE (08:55)
[2019-12-28 09:23] LABS: Bilirubin,Urine Negative (Negative); Blood, Urine Negative (Negative); Glucose,Urine (UA) Negative (Negative); Ketones,Urine Negative (Negative); Mucus,Urine Few /LPF (Occasional); Nitrite,Urine Negative (Negative); Protein,Urine Negative; RBC,Urine 2 /HPF (0-4); Urine Appearance CLEAR (Clear); Urine Color Yellow (Yellow); Urine Specific Gravity 1.016 (1.001-1.035); Urine Urobilinogen < 2.0 EU/DL (0.2-1.0); WBC,Urine 1 /HPF (0-6)
[2019-12-28] MEDS ORDERED: BISACODYL 10 MG SUPP RECTAL PRN (09:25)
[2019-12-28] MEDS ORDERED: MAGNESIUM HYDROXIDE SUSP 30 ML UDCUP PO PRN (09:25)
[2019-12-28] MEDS ORDERED: ONDANSETRON 4 MG/2 ML VIAL IV PRN (09:25)
[2019-12-28] MEDS ORDERED: BENZOCAINE/MENTHOL LOZENGE 18/BOX PO PRN (09:25)
[2019-12-28] MEDS ORDERED: DOCUSATE SODIUM 100 MG CAPSULE PO PRN (09:25)
[2019-12-28] MEDS ORDERED: ACETAMINOPHEN 325 MG TABLET PO PRN (09:25)
[2019-12-28] MEDS: LACTATED RINGERS 1,000 ML IV SCH ×2 (09:48→16:30)
[2019-12-28] MEDS: DEXT 5% NACL 0.45% KCL 20 MEQ 20 MEQ/1,000 ML BAG IV SCH (09:48)
[2019-12-28 10:43] LABS: ABG Base Excess 2.3 MMOL/L (-2.5-2.5); ABG HCO3 26.5 MMOL/L (20-26); ABG Oxygen Saturation 99.4 % (95-100); ABG PCO2 40.3 MM HG (35-48); ABG TCO2 24.4 MMOL/L (23-27)
[2019-12-28] MEDS: MORPHINE 4 MG/1 ML VIAL IV PRN ×2 (12:34→22:39)
[2019-12-28 13:04] LABS: Basophils % 0.3 % (0.0-0.8); Eosinophils % 0.1 % (0.00-10.9); Hematocrit 31.7 VOL% (35.7-47.0); Immature Granulocytes % 0.7 %; Lymphocytes # 0.9 10*3/uL (1.4-4.0); Lymphocytes % 6.1 % (21.3-54.2); Mean Corpuscular HGB Conc 34.7 GM/DL (32-36); Mean Corpuscular Volume 89.5 FL (87-102); Mean Platelet Volume 8.8 FL (9.6-12.0); Monocytes % 5.3 % (1.7-12.7); Neutrophils % 87.5 % (38.7-73.9); Platelet Count 226 T/CUMM (130-400); Red Cell Distribution Width 14.1 % (9.3-17.3)
[2019-12-28 13:08] LABS: Red Blood Count 3.54 MC/CUMM (3.8-5.5)
[2019-12-28 13:15] LABS: INR 1.8; PT Patient Result 18.5 SECS (9.8-11.9); Partial Thromboplastin Time 45.8 SECS (23.9-33.8)
[2019-12-28] MEDS: ceFAZolin 1,000 MG in SYRINGE 1 EACH IV SCH (15:23)
[2019-12-29] MEDS: ceFAZolin 1,000 MG in SYRINGE 1 EACH IV SCH (00:06)
[2019-12-29] MEDS: MORPHINE 4 MG/1 ML VIAL IV PRN ×2 (00:21→11:41)
[2019-12-29] MEDS: LACTATED RINGERS 1,000 ML IV SCH ×2 (00:25→09:23)
[2019-12-29 05:06] LABS: ABG Base Excess 2.8 MMOL/L (-2.5-2.5); ABG HCO3 25.9 MMOL/L (20-26); ABG Oxygen Saturation 98.3 % (95-100); ABG PCO2 33.9 MM HG (35-48); ABG PH 7.501 (7.35-7.45); ABG PO2 113.4 MM HG (80-95); ABG TCO2 26.9 MMOL/L (23-27)
[2019-12-29 05:12] LABS: Basophils % 0.1 % (0.0-0.8); Hematocrit 27.5 VOL% (35.7-47.0); Hemoglobin 9.5 GM/DL (12.0-16.0); Immature Granulocytes % 0.6 %; Immature Granulocytes Absolute 0.09 #; Lymphocytes # 1.8 10*3/uL (1.4-4.0); Lymphocytes % 12.3 % (21.3-54.2); Mean Corpuscular HGB Conc 34.5 GM/DL (32-36); Mean Platelet Volume 9.2 FL (9.6-12.0); Monocytes % 7.3 % (1.7-12.7); Neutrophils % 79.7 % (38.7-73.9); Platelet Count 227 T/CUMM (130-400); Red Blood Count 3.09 MC/CUMM (3.8-5.5); Red Cell Distribution Width 14.6 % (9.3-17.3); White Blood Count 14.9 T/CUMM (4-12)
[2019-12-29 05:28] LABS: Alanine Aminotransferase < 9 U/L (13-56); Albumin 1.5 G/DL (3.4-5.0); Alkaline Phosphatase 56 U/L (45-117); Aspartate Amino Transferase 17 U/L (0-37); Blood Urea Nitrogen 14 MG/DL (7-18); Calcium 7.7 MG/DL (8.5-10.1); Estimated Glom Filtration Rate 64 ML/MIN; Glucose 126 MG/DL (74-106); Osmolality,Calculated 266.5 MOS/KG (273-304); Total Protein 7.8 G/DL (6.4-8.3)
[2019-12-29 05:29] LABS: INR 1.4; PT Patient Result 14.5 SECS (9.8-11.9); Partial Thromboplastin Time 35.9 SECS (23.9-33.8)
[2019-12-29] MEDS ORDERED: MIDAZOLAM 2 MG/2 ML VIAL ONE (06:55)
[2019-12-29] MEDS ORDERED: ROCURONIUM 50 MG/5 ML VIAL IV ONE (06:55)
[2019-12-29] MEDS ORDERED: fentaNYL 100 MCG/2 ML VIAL ONE (06:56)
[2019-12-29] MEDS ORDERED: ceFAZolin 1,000 MG VIAL ONE (07:39)
[2019-12-29] MEDS ORDERED: METHYLENE BLUE 10 ML VIAL IV ONE (07:43)
[2019-12-29] MEDS ORDERED: NEOMYCIN/POLYMYXIN IRRIG SOLN 1 ML AMP BLADDERIRR ONE (07:43)
[2019-12-29] MEDS ORDERED: MICROFIBRILLAR COLLAGEN POWDER 1 GM CAN TOP ONE ×2 (08:17→08:19)
[2019-12-29] MEDS: fentaNYL 12 MCG/HR PATCH TRANSDERM SCH (10:35)
[2019-12-29] MEDS ORDERED: SEVOFLURANE 1 UNIT/15 MINUTE INH ONE (11:35)
[2019-12-29] MEDS: fentaNYL INJ 1,250 MCG in SODIUM CHLORIDE 0.9% 225 ML IV PRN (11:39)
[2019-12-29] MEDS: PANTOPRAZOLE 40 MG VIAL IV SCH (11:40)
[2019-12-29] MEDS: SODIUM CHLORIDE 0.9% 1,000 ML IV SCH ×2 (11:40→19:41)
[2019-12-29 16:32] LABS: Basophils % 0.1 % (0.0-0.8); Eosinophils % 0.2 % (0.00-10.9); Hematocrit 27.7 VOL% (35.7-47.0); Hemoglobin 9.6 GM/DL (12.0-16.0); Immature Granulocytes % 0.8 %; Immature Granulocytes Absolute 0.14 #; Lymphocytes # 2.2 10*3/uL (1.4-4.0); Lymphocytes % 12.6 % (21.3-54.2); Mean Corpuscular HGB Conc 34.7 GM/DL (32-36); Mean Corpuscular Volume 90.8 FL (87-102); Mean Platelet Volume 9.3 FL (9.6-12.0); Monocytes % 8.2 % (1.7-12.7); Neutrophils % 78.1 % (38.7-73.9); Platelet Count 235 T/CUMM (130-400); Red Blood Count 3.05 MC/CUMM (3.8-5.5); Red Cell Distribution Width 14.5 % (9.3-17.3); White Blood Count 17.8 T/CUMM (4-12)
[2019-12-30] MEDS: SODIUM CHLORIDE 0.9% 1,000 ML IV SCH ×2 (04:04→14:30)
[2019-12-30 05:18] LABS: ABG Base Excess 1.6 MMOL/L (-2.5-2.5); ABG HCO3 25.9 MMOL/L (20-26); ABG PH 7.456 (7.35-7.45); ABG TCO2 23.6 MMOL/L (23-27)
[2019-12-30 05:22] LABS: Basophils # 0.1 10*3/uL (0.0-0.2); Basophils % 0.3 % (0.0-0.8); Eosinophils # 0.4 10*3/uL (0.0-0.87); Hematocrit 25.7 VOL% (35.7-47.0); Hemoglobin 8.7 GM/DL (12.0-16.0); Immature Granulocytes % 1.7 %; Lymphocytes # 2.8 10*3/uL (1.4-4.0); Lymphocytes % 15.8 % (21.3-54.2); Mean Corpuscular HGB Conc 33.9 GM/DL (32-36); Mean Corpuscular Volume 91.8 FL (87-102); Mean Platelet Volume 9.1 FL (9.6-12.0); Monocytes % 9.7 % (1.7-12.7); Neutrophils % 70.5 % (38.7-73.9); Platelet Count 237 T/CUMM (130-400); Red Cell Distribution Width 14.1 % (9.3-17.3)
[2019-12-30 05:43] LABS: Alanine Aminotransferase < 9 U/L (13-56); Albumin 1.2 G/DL (3.4-5.0); Alkaline Phosphatase 74 U/L (45-117); Aspartate Amino Transferase 36 U/L (0-37); Blood Urea Nitrogen 20 MG/DL (7-18); Calcium 7.3 MG/DL (8.5-10.1); Estimated Glom Filtration Rate 56 ML/MIN; Glucose 109 MG/DL (74-106); Osmolality,Calculated 267.5 MOS/KG (273-304); Total Protein 7.6 G/DL (6.4-8.3)
[2019-12-30] MEDS ORDERED: SODIUM CHLORIDE 0.9% 1,000 ML IV PRN (07:52)
[2019-12-30] MEDS: PANTOPRAZOLE 40 MG VIAL IV SCH (09:05)
[2019-12-30] MEDS: fentaNYL INJ 1,250 MCG in SODIUM CHLORIDE 0.9% 225 ML IV PRN ×2 (11:00→21:51)
[2019-12-30] MEDS: MORPHINE 4 MG/1 ML VIAL IV PRN (11:10)
[2019-12-30] MEDS: BELLADONNA/OPIUM 30 MG SUPP RECTAL SCH ×2 (11:35→21:36)
[2019-12-31] MEDS: SODIUM CHLORIDE 0.9% 1,000 ML IV SCH ×4 (00:14→22:38)
[2019-12-31 05:27] LABS: ABG Base Excess 0.6 MMOL/L (-2.5-2.5); ABG HCO3 24.9 MMOL/L (20-26); ABG Oxygen Saturation 93.8 % (95-100); ABG PCO2 43.9 MM HG (35-48); ABG PO2 68.4 MM HG (80-95); ABG TCO2 23.5 MMOL/L (23-27)
[2019-12-31 06:04] LABS: Basophils # 0.1 10*3/uL (0.0-0.2); Basophils % 0.6 % (0.0-0.8); Eosinophils # 0.7 10*3/uL (0.0-0.87); Eosinophils % 4.7 % (0.00-10.9); Hematocrit 32.5 VOL% (35.7-47.0); Hemoglobin 10.7 GM/DL (12.0-16.0); Immature Granulocytes % 2.9 %; Immature Granulocytes Absolute 0.43 #; Lymphocytes # 2.8 10*3/uL (1.4-4.0); Lymphocytes % 19.5 % (21.3-54.2); Mean Corpuscular HGB Conc 32.9 GM/DL (32-36); Mean Corpuscular Volume 90.8 FL (87-102); Mean Platelet Volume 9.2 FL (9.6-12.0); NRBC # 0.02 10*3/uL; Neutrophils % 63.3 % (38.7-73.9); Platelet Count 235 T/CUMM (130-400); Red Blood Count 3.58 MC/CUMM (3.8-5.5); Red Cell Distribution Width 16.4 % (9.3-17.3); White Blood Count 14.6 T/CUMM (4-12)
[2019-12-31 06:11] LABS: INR 1.2; PT Patient Result 12.5 SECS (9.8-11.9)
[2019-12-31 06:30] LABS: Albumin 1.2 G/DL (3.4-5.0); Bilirubin,Total 1.2 MG/DL (0.2-1.0); Calcium 7.3 MG/DL (8.5-10.1); Osmolality,Calculated 269.1 MOS/KG (273-304); Total Protein 7.8 G/DL (6.4-8.3)
[2019-12-31] MEDS: fentaNYL INJ 1,250 MCG in SODIUM CHLORIDE 0.9% 225 ML IV PRN ×2 (08:05→17:45)
[2019-12-31] MEDS: PANTOPRAZOLE 40 MG VIAL IV SCH (09:10)
[2019-12-31] MEDS: BELLADONNA/OPIUM 30 MG SUPP RECTAL SCH ×2 (09:55→21:40)
[2020-01-01 03:19] LABS: Basophils # 0.1 10*3/uL (0.0-0.2); Basophils % 0.6 % (0.0-0.8); Eosinophils # 0.7 10*3/uL (0.0-0.87); Eosinophils % 6.4 % (0.00-10.9); Hematocrit 29.4 VOL% (35.7-47.0); Hemoglobin 9.5 GM/DL (12.0-16.0); Immature Granulocytes % 4.2 %; Immature Granulocytes Absolute 0.45 #; Lymphocytes # 1.9 10*3/uL (1.4-4.0); Lymphocytes % 17.8 % (21.3-54.2); Mean Corpuscular HGB Conc 32.3 GM/DL (32-36); Mean Corpuscular Volume 92.2 FL (87-102); Mean Platelet Volume 8.9 FL (9.6-12.0); Monocytes % 11.2 % (1.7-12.7); Neutrophils % 59.8 % (38.7-73.9); Platelet Count 223 T/CUMM (130-400); Red Blood Count 3.19 MC/CUMM (3.8-5.5); White Blood Count 10.8 T/CUMM (4-12)
[2020-01-01 03:37] LABS: INR 1.2
[2020-01-01 03:38] LABS: Alanine Aminotransferase < 6 U/L (13-56); Albumin 1.1 G/DL (3.4-5.0); Alkaline Phosphatase 110 U/L (45-117); Aspartate Amino Transferase 23 U/L (0-37); Blood Urea Nitrogen 12 MG/DL (7-18); Estimated Glom Filtration Rate 79 ML/MIN; Glucose 88 MG/DL (74-106); Total Protein 6.9 G/DL (6.4-8.3)
[2020-01-01 05:05] LABS: ABG Base Excess 1.3 MMOL/L (-2.5-2.5); ABG HCO3 25.6 MMOL/L (20-26); ABG Oxygen Saturation 97.5 % (95-100); ABG PH 7.376 (7.35-7.45); ABG PO2 90.7 MM HG (80-95); ABG TCO2 24.4 MMOL/L (23-27)
[2020-01-01] MEDS: SODIUM CHLORIDE 0.9% 1,000 ML IV SCH ×4 (05:20→17:28)
[2020-01-01] MEDS: fentaNYL INJ 1,250 MCG in SODIUM CHLORIDE 0.9% 225 ML IV PRN ×2 (05:20→20:54)
[2020-01-01] MEDS ORDERED: SODIUM CHLORIDE 0.9% 1,000 ML IV PRN (08:38)
[2020-01-01] MEDS: PANTOPRAZOLE 40 MG VIAL IV SCH (09:33)
[2020-01-01] MEDS: BELLADONNA/OPIUM 30 MG SUPP RECTAL SCH ×2 (09:51→20:56)
[2020-01-01] MEDS: fentaNYL 12 MCG/HR PATCH TRANSDERM SCH (09:51)
[2020-01-01] MEDS ORDERED: LIDOCAINE 100 MG/5 ML SYRINGE ONE (10:25)
[2020-01-01] MEDS ORDERED: VECURONIUM 10 MG VIAL IV ONE (10:26)
[2020-01-01] MEDS ORDERED: ETOMIDATE 20 MG/10 ML VIAL IV ONE (10:26)
[2020-01-01] MEDS ORDERED: SUCCINYLCHOLINE 200 MG/10 ML VIAL ONE (10:26)
[2020-01-01] MEDS: methylPREDNISolone SOD SUC 40 MG/1 ML VIAL IV SCH ×2 (15:03→22:17)
[2020-01-02] MEDS: SODIUM CHLORIDE 0.9% 1,000 ML IV SCH ×2 (02:46→19:35)
[2020-01-02 04:39] LABS: ABG HCO3 23.7 MMOL/L (20-26); ABG Oxygen Saturation 96.7 % (95-100); ABG PCO2 39.6 MM HG (35-48); ABG PH 7.395 (7.35-7.45); ABG PO2 88.9 MM HG (80-95); ABG TCO2 24.9 MMOL/L (23-27); Allen Test Positive; Pt O2 Delivery Device Ventilator
[2020-01-02 06:00] LABS: Basophils # 0.1 10*3/uL (0.0-0.2); Basophils % 0.3 % (0.0-0.8); Hematocrit 36.4 VOL% (35.7-47.0); Hemoglobin 11.6 GM/DL (12.0-16.0); INR 1.2; Immature Granulocytes Absolute 0.44 #; Lymphocytes # 1.6 10*3/uL (1.4-4.0); Lymphocytes % 10.8 % (21.3-54.2); Mean Corpuscular HGB Conc 31.9 GM/DL (32-36); Mean Corpuscular Volume 93.6 FL (87-102); Mean Platelet Volume 9.9 FL (9.6-12.0); Monocytes % 3.8 % (1.7-12.7); Neutrophils % 82.1 % (38.7-73.9); Platelet Count 244 T/CUMM (130-400); Red Blood Count 3.89 MC/CUMM (3.8-5.5); Red Cell Distribution Width 15.4 % (9.3-17.3); White Blood Count 14.7 T/CUMM (4-12)
[2020-01-02] MEDS: fentaNYL INJ 1,250 MCG in SODIUM CHLORIDE 0.9% 225 ML IV PRN ×2 (06:12→17:50)
[2020-01-02 06:37] LABS: Albumin 1.1 G/DL (3.4-5.0); Bilirubin,Total 0.4 MG/DL (0.2-1.0); Calcium 7.4 MG/DL (8.5-10.1); Osmolality,Calculated 268.8 MOS/KG (273-304); Total Protein 8.8 G/DL (6.4-8.3)
[2020-01-02] MEDS: methylPREDNISolone SOD SUC 40 MG/1 ML VIAL IV SCH ×3 (06:57→22:30)
[2020-01-02] MEDS: PANTOPRAZOLE 40 MG VIAL IV SCH (08:15)
[2020-01-02] MEDS: DEXMEDETOMIDINE 200 MCG in SODIUM CHLORIDE 0.9% 48 ML IV PRN ×2 (11:25→22:20)
[2020-01-02 15:30] LABS: ABG Base Excess -0.1 MMOL/L (-2.5-2.5); ABG HCO3 24.4 MMOL/L (20-26); ABG Oxygen Saturation 99.5 % (95-100); ABG PCO2 37.9 MM HG (35-48); ABG PH 7.414 (7.35-7.45); ABG TCO2 21.8 MMOL/L (23-27)
[2020-01-03 03:38] LABS: Basophils % 0.2 % (0.0-0.8); Hematocrit 32.9 VOL% (35.7-47.0); Hemoglobin 10.6 GM/DL (12.0-16.0); Immature Granulocytes % 1.1 %; Immature Granulocytes Absolute 0.17 #; Lymphocytes # 0.8 10*3/uL (1.4-4.0); Lymphocytes % 5.4 % (21.3-54.2); Mean Corpuscular HGB Conc 32.2 GM/DL (32-36); Mean Corpuscular Volume 93.5 FL (87-102); Mean Platelet Volume 9.4 FL (9.6-12.0); Monocytes % 6.7 % (1.7-12.7); Neutrophils % 86.6 % (38.7-73.9); Platelet Count 221 T/CUMM (130-400); Red Blood Count 3.52 MC/CUMM (3.8-5.5); Red Cell Distribution Width 14.8 % (9.3-17.3); White Blood Count 14.8 T/CUMM (4-12)
[2020-01-03 03:49] LABS: INR 1.2; PT Patient Result 12.5 SECS (9.8-11.9)
[2020-01-03 03:53] LABS: Calcium 7.5 MG/DL (8.5-10.1); Osmolality,Calculated 280.1 MOS/KG (273-304)
[2020-01-03 03:55] LABS: Alanine Aminotransferase 9 U/L (13-56); Albumin 1.3 G/DL (3.4-5.0); Alkaline Phosphatase 140 U/L (45-117); Aspartate Amino Transferase 20 U/L (0-37); Bilirubin,Total < 0.39 MG/DL (0.2-1.0); Blood Urea Nitrogen 25 MG/DL (7-18); Calcium 7.7 MG/DL (8.5-10.1); Estimated Glom Filtration Rate 64 ML/MIN; Glucose 220 MG/DL (74-106); Osmolality,Calculated 280.1 MOS/KG (273-304); Total Protein 8.3 G/DL (6.4-8.3)
[2020-01-03] MEDS: MORPHINE 4 MG/1 ML VIAL IV PRN ×6 (04:16→19:52)
[2020-01-03 04:39] LABS: ABG Base Excess -0.7 MMOL/L (-2.5-2.5); ABG HCO3 23.8 MMOL/L (20-26); ABG Oxygen Saturation 98.5 % (95-100); ABG PCO2 42.3 MM HG (35-48); ABG PH 7.372 (7.35-7.45); ABG TCO2 22.1 MMOL/L (23-27); Allen Test Positive; Pt O2 Delivery Device Ventilator
[2020-01-03] MEDS: methylPREDNISolone SOD SUC 40 MG/1 ML VIAL IV SCH ×3 (06:29→22:01)
[2020-01-03] MEDS ORDERED: RACEPINEPHRINE 0.5 ML NEB RESP TX ONE (08:08)
[2020-01-03] MEDS: PANTOPRAZOLE 40 MG VIAL IV SCH (08:26)
[2020-01-03] MEDS: SODIUM CHLORIDE 0.9% 1,000 ML IV SCH (12:16)
[2020-01-03] MEDS: DEXMEDETOMIDINE 200 MCG in SODIUM CHLORIDE 0.9% 48 ML IV PRN (12:54)
[2020-01-03] MEDS ORDERED: FUROSEMIDE 40 MG/4 ML VIAL IV ONE (19:27)
[2020-01-03 20:30] LABS: ABG Base Excess -1.2 MMOL/L (-2.5-2.5); ABG HCO3 23.4 MMOL/L (20-26); ABG Oxygen Saturation 98.2 % (95-100); ABG PCO2 39.8 MM HG (35-48); ABG PH 7.383 (7.35-7.45); ABG TCO2 21.2 MMOL/L (23-27)
[2020-01-03] MEDS: ACETAMINOPHEN 325 MG/10.15 ML UDCUP PO SCH (22:26)
[2020-01-04 03:11] LABS: ABG Base Excess 1.4 MMOL/L (-2.5-2.5); ABG HCO3 25.3 MMOL/L (20-26); ABG Oxygen Saturation 95.5 % (95-100); ABG PCO2 37.6 MM HG (35-48); ABG PH 7.446 (7.35-7.45); ABG PO2 76.3 MM HG (80-95); ABG TCO2 26.5 MMOL/L (23-27); Allen Test Positive; Pt O2 Delivery Device BIPAP
[2020-01-04] MEDS ORDERED: FUROSEMIDE 40 MG/4 ML VIAL IV ONE (04:00)
[2020-01-04 06:05] LABS: Basophils % 0.1 % (0.0-0.8); Hematocrit 34.8 VOL% (35.7-47.0); Hemoglobin 11.3 GM/DL (12.0-16.0); Immature Granulocytes Absolute 0.16 #; Lymphocytes # 0.7 10*3/uL (1.4-4.0); Lymphocytes % 4.5 % (21.3-54.2); Mean Corpuscular HGB Conc 32.5 GM/DL (32-36); Mean Corpuscular Volume 92.6 FL (87-102); Mean Platelet Volume 9.3 FL (9.6-12.0); Monocytes % 7.1 % (1.7-12.7); Neutrophils % 87.3 % (38.7-73.9); Platelet Count 241 T/CUMM (130-400); Red Blood Count 3.76 MC/CUMM (3.8-5.5); Red Cell Distribution Width 14.6 % (9.3-17.3); White Blood Count 16.3 T/CUMM (4-12)
[2020-01-04 06:17] LABS: INR 1.2
[2020-01-04 06:23] LABS: Hypochromasia Slight; Lymphocytes 1 % (20-55); Platelet Estimate Adequate; Segmented Neutrophils 92 % (50-85); Total Cells Counted 100
[2020-01-04 06:29] LABS: Albumin 1.6 G/DL (3.4-5.0); Bilirubin,Total 0.6 MG/DL (0.2-1.0); Calcium 8.2 MG/DL (8.5-10.1); Osmolality,Calculated 284.2 MOS/KG (273-304); Total Protein 9.1 G/DL (6.4-8.3)
[2020-01-04] MEDS: ACETAMINOPHEN 325 MG/10.15 ML UDCUP PO SCH ×3 (07:40→21:40)
[2020-01-04] MEDS: MORPHINE 4 MG/1 ML VIAL IV PRN (08:35)
[2020-01-04] MEDS ORDERED: ETOMIDATE 20 MG/10 ML VIAL IV ONE ×2 (09:01→09:10)
[2020-01-04] MEDS ORDERED: VECURONIUM 10 MG VIAL IV ONE (09:01)
[2020-01-04] MEDS: PANTOPRAZOLE 40 MG VIAL IV SCH (10:11)
[2020-01-04] MEDS: methylPREDNISolone SOD SUC 40 MG/1 ML VIAL IV SCH (10:14)
[2020-01-04] MEDS: fentaNYL 25 MCG/HR PATCH TRANSDERM SCH (10:16)
[2020-01-04] MEDS ORDERED: ENOXAPARIN 40 MG/0.4 ML SYRINGE SUBCUT SCH (11:00)
[2020-01-04 11:21] LABS: ABG Base Excess 1.7 MMOL/L (-2.5-2.5); ABG HCO3 25.9 MMOL/L (20-26); ABG Oxygen Saturation 99.7 % (95-100); ABG PCO2 37.8 MM HG (35-48); ABG PH 7.441 (7.35-7.45); ABG TCO2 23.4 MMOL/L (23-27); Allen Test Positive; Pt O2 Delivery Device Ventilator
[2020-01-04] MEDS ORDERED: propofoL 200 MG/20 ML VIAL IV ONE (12:37)
[2020-01-04] MEDS: ENOXAPARIN 80 MG/0.8 ML SYRINGE SUBCUT SCH (12:55)
[2020-01-04] MEDS: ALBUMIN 25% 12.5 GM in PREMIX 1 EACH IV SCH ×2 (12:55→21:38)
[2020-01-04] MEDS: ALBUTEROL/IPRATROPIUM 3 ML NEB RESP TX SCH ×2 (15:37→19:33)
[2020-01-04] MEDS: FUROSEMIDE 40 MG/4 ML VIAL IV SCH (16:04)
[2020-01-04] MEDS ORDERED: DEXTROSE 50% 25 GM/50 ML VIAL IV PRN (21:19)
[2020-01-04] MEDS ORDERED: GLUCAGON 1 MG VIAL IM PRN (21:19)
[2020-01-04] MEDS: predniSONE 10 MG TABLET PO SCH (21:40)
[2020-01-04] MEDS ORDERED: MORPHINE 4 MG/1 ML VIAL IV PRN (22:04)
[2020-01-05] MEDS ORDERED: INSULIN REGULAR 100 UNIT/ML SUBCUT SCH
[2020-01-05] MEDS: ALBUTEROL/IPRATROPIUM 3 ML NEB RESP TX SCH ×4 (00:38→19:59)
[2020-01-05] MEDS: ENOXAPARIN 80 MG/0.8 ML SYRINGE SUBCUT SCH ×2 (00:58→12:16)
[2020-01-05] MEDS: INSULIN REGULAR 100 UNIT/ML SUBCUT SCH ×5 (00:59→21:57)
[2020-01-05 03:22] LABS: Allen Test Positive; Pt O2 Delivery Device Ventilator
[2020-01-05 03:24] LABS: ABG Base Excess 4.6 MMOL/L (-2.5-2.5); ABG HCO3 28.6 MMOL/L (20-26); ABG Oxygen Saturation 99.2 % (95-100); ABG PCO2 40.2 MM HG (35-48); ABG PH 7.462 (7.35-7.45); ABG TCO2 26.2 MMOL/L (23-27)
[2020-01-05 04:00] LABS: Basophils % 0.1 % (0.0-0.8); Hematocrit 30.1 VOL% (35.7-47.0); Hemoglobin 9.8 GM/DL (12.0-16.0); Immature Granulocytes % 1.6 %; Immature Granulocytes Absolute 0.24 #; Lymphocytes % 6.9 % (21.3-54.2); Mean Corpuscular HGB Conc 32.6 GM/DL (32-36); Mean Corpuscular Volume 92.9 FL (87-102); Mean Platelet Volume 9.6 FL (9.6-12.0); Monocytes % 10.8 % (1.7-12.7); Neutrophils % 80.6 % (38.7-73.9); Platelet Count 207 T/CUMM (130-400); Red Blood Count 3.24 MC/CUMM (3.8-5.5); Red Cell Distribution Width 14.6 % (9.3-17.3); White Blood Count 14.7 T/CUMM (4-12)
[2020-01-05 04:08] LABS: INR 1.3; PT Patient Result 13.4 SECS (9.8-11.9)
[2020-01-05 04:27] LABS: Bilirubin,Total 0.6 MG/DL (0.2-1.0); Calcium 8.3 MG/DL (8.5-10.1); Osmolality,Calculated 293.7 MOS/KG (273-304); Total Protein 7.9 G/DL (6.4-8.3)
[2020-01-05] MEDS: ALBUMIN 25% 12.5 GM in PREMIX 1 EACH IV SCH ×3 (05:36→21:57)
[2020-01-05] MEDS: ACETAMINOPHEN 325 MG/10.15 ML UDCUP PO SCH ×2 (07:14→16:13)
[2020-01-05] MEDS: FUROSEMIDE 40 MG/4 ML VIAL IV SCH ×2 (08:50→16:26)
[2020-01-05] MEDS: PANTOPRAZOLE 40 MG VIAL IV SCH (08:52)
[2020-01-05] MEDS: predniSONE 10 MG TABLET PO SCH (21:57)
[2020-01-05] MEDS: MAGNESIUM HYDROXIDE SUSP 30 ML UDCUP PO PRN (22:04)
[2020-01-06] MEDS: ENOXAPARIN 80 MG/0.8 ML SYRINGE SUBCUT SCH ×3 (01:06→23:45)
[2020-01-06] MEDS: INSULIN REGULAR 100 UNIT/ML SUBCUT SCH ×7 (01:06→23:45)
[2020-01-06] MEDS: ACETAMINOPHEN 325 MG/10.15 ML UDCUP PO SCH ×4 (01:06→21:24)
[2020-01-06] MEDS: ALBUTEROL/IPRATROPIUM 3 ML NEB RESP TX SCH ×4 (01:29→18:57)
[2020-01-06 03:17] LABS: ABG Base Excess 8.8 MMOL/L (-2.5-2.5); ABG HCO3 32.6 MMOL/L (20-26); ABG Oxygen Saturation 99.2 % (95-100); ABG PCO2 45.9 MM HG (35-48); ABG PH 7.474 (7.35-7.45); ABG TCO2 29.4 MMOL/L (23-27); Allen Test Positive; Pt O2 Delivery Device Ventilator
[2020-01-06] MEDS: ALBUMIN 25% 12.5 GM in PREMIX 1 EACH IV SCH ×3 (04:57→20:58)
[2020-01-06 05:38] LABS: Basophils % 0.1 % (0.0-0.8); Hematocrit 27.2 VOL% (35.7-47.0); Hemoglobin 8.8 GM/DL (12.0-16.0); Immature Granulocytes % 1.1 %; Immature Granulocytes Absolute 0.13 #; Lymphocytes # 0.7 10*3/uL (1.4-4.0); Lymphocytes % 5.5 % (21.3-54.2); Mean Corpuscular HGB Conc 32.4 GM/DL (32-36); Mean Corpuscular Volume 93.2 FL (87-102); Mean Platelet Volume 9.7 FL (9.6-12.0); Monocytes % 4.8 % (1.7-12.7); Neutrophils % 88.5 % (38.7-73.9); Platelet Count 227 T/CUMM (130-400); Red Blood Count 2.92 MC/CUMM (3.8-5.5); Red Cell Distribution Width 14.6 % (9.3-17.3); White Blood Count 12.1 T/CUMM (4-12)
[2020-01-06 05:58] LABS: Albumin 2.5 G/DL (3.4-5.0); Bilirubin,Total 0.6 MG/DL (0.2-1.0); Calcium 8.1 MG/DL (8.5-10.1); Total Protein 7.7 G/DL (6.4-8.3)
[2020-01-06] MEDS: FUROSEMIDE 40 MG/4 ML VIAL IV SCH ×2 (08:18→16:20)
[2020-01-06] MEDS: PANTOPRAZOLE 40 MG VIAL IV SCH (08:18)
[2020-01-06 15:58] LABS: Hemoglobin 11.3 GM/DL (12.0-16.0)
[2020-01-06] MEDS: predniSONE 10 MG TABLET PO SCH (20:59)
[2020-01-07] MEDS: ALBUTEROL/IPRATROPIUM 3 ML NEB RESP TX SCH ×4 (00:43→19:28)
[2020-01-07 04:13] LABS: Basophils % 0.1 % (0.0-0.8); Eosinophils % 0.1 % (0.00-10.9); Hematocrit 33.2 VOL% (35.7-47.0); Hemoglobin 11.1 GM/DL (12.0-16.0); Immature Granulocytes % 0.8 %; Immature Granulocytes Absolute 0.15 #; Lymphocytes # 1.4 10*3/uL (1.4-4.0); Lymphocytes % 7.7 % (21.3-54.2); Mean Corpuscular HGB Conc 33.4 GM/DL (32-36); Mean Corpuscular Volume 89.7 FL (87-102); Mean Platelet Volume 9.9 FL (9.6-12.0); Monocytes % 4.6 % (1.7-12.7); Neutrophils % 86.7 % (38.7-73.9); Platelet Count 244 T/CUMM (130-400); Red Cell Distribution Width 15.8 % (9.3-17.3); White Blood Count 18.3 T/CUMM (4-12)
[2020-01-07] MEDS: ALBUMIN 25% 12.5 GM in PREMIX 1 EACH IV SCH (04:25)
[2020-01-07] MEDS: INSULIN REGULAR 100 UNIT/ML SUBCUT SCH ×5 (04:27→20:44)
[2020-01-07 04:41] LABS: Albumin 2.3 G/DL (3.4-5.0); Bilirubin,Total 1.1 MG/DL (0.2-1.0); Calcium 8.2 MG/DL (8.5-10.1); Osmolality,Calculated 295.4 MOS/KG (273-304); Total Protein 7.5 G/DL (6.4-8.3)
[2020-01-07] MEDS: ACETAMINOPHEN 325 MG/10.15 ML UDCUP PO SCH ×3 (06:35→21:02)
[2020-01-07] MEDS: FUROSEMIDE 40 MG/4 ML VIAL IV SCH ×2 (08:22→15:15)
[2020-01-07] MEDS: PANTOPRAZOLE 40 MG VIAL IV SCH (08:22)
[2020-01-07] MEDS: fentaNYL 25 MCG/HR PATCH TRANSDERM SCH (08:23)
[2020-01-07] MEDS: ENOXAPARIN 80 MG/0.8 ML SYRINGE SUBCUT SCH (11:45)
[2020-01-07] MEDS ORDERED: POTASSIUM PHOSPHATE 15 MMOL in SODIUM CHLORIDE 0.9% 100 ML IV ONE (14:45)
[2020-01-07] MEDS: predniSONE 10 MG TABLET PO SCH (20:44)
[2020-01-08] MEDS: ENOXAPARIN 80 MG/0.8 ML SYRINGE SUBCUT SCH ×3 (00:25→23:55)
[2020-01-08] MEDS: INSULIN REGULAR 100 UNIT/ML SUBCUT SCH ×7 (00:25→23:35)
[2020-01-08] MEDS: ALBUTEROL/IPRATROPIUM 3 ML NEB RESP TX SCH ×4 (00:58→19:47)
[2020-01-08] MEDS: ACETAMINOPHEN 325 MG/10.15 ML UDCUP PO SCH ×3 (05:47→21:18)
[2020-01-08 07:56] LABS: Basophils % 0.1 % (0.0-0.8); Eosinophils # 0.1 10*3/uL (0.0-0.87); Eosinophils % 0.2 % (0.00-10.9); Hematocrit 37.2 VOL% (35.7-47.0); Immature Granulocytes % 0.8 %; Immature Granulocytes Absolute 0.21 #; Lymphocytes # 2.3 10*3/uL (1.4-4.0); Lymphocytes % 8.7 % (21.3-54.2); Mean Corpuscular HGB Conc 32.3 GM/DL (32-36); Mean Corpuscular Volume 92.8 FL (87-102); Mean Platelet Volume 9.8 FL (9.6-12.0); Neutrophils % 86.2 % (38.7-73.9); Platelet Count 271 T/CUMM (130-400); Red Blood Count 4.01 MC/CUMM (3.8-5.5); Red Cell Distribution Width 15.3 % (9.3-17.3); White Blood Count 26.1 T/CUMM (4-12)
[2020-01-08 08:16] LABS: Hypochromasia 1+; Lymphocytes 11 % (20-55); Segmented Neutrophils 86 % (50-85); Target Cells Slight; Total Cells Counted 100
[2020-01-08 08:17] LABS: Microcytosis 1+; Platelet Estimate Normal
[2020-01-08 08:27] LABS: Albumin 2.1 G/DL (3.4-5.0); Bilirubin,Total 0.7 MG/DL (0.2-1.0); Calcium 8.3 MG/DL (8.5-10.1); Osmolality,Calculated 296.4 MOS/KG (273-304); Total Protein 7.4 G/DL (6.4-8.3)
[2020-01-08] MEDS: FUROSEMIDE 40 MG/4 ML VIAL IV SCH ×2 (08:40→15:30)
[2020-01-08] MEDS: PANTOPRAZOLE 40 MG VIAL IV SCH (08:45)
[2020-01-08] MEDS: predniSONE 10 MG TABLET PO SCH (21:18)
[2020-01-09] MEDS: ALBUTEROL/IPRATROPIUM 3 ML NEB RESP TX SCH ×4 (01:41→19:40)
[2020-01-09] MEDS: INSULIN REGULAR 100 UNIT/ML SUBCUT SCH ×5 (04:19→20:51)
[2020-01-09 04:28] LABS: Basophils # 0.1 10*3/uL (0.0-0.2); Basophils % 0.2 % (0.0-0.8); Eosinophils # 0.2 10*3/uL (0.0-0.87); Eosinophils % 0.6 % (0.00-10.9); Hemoglobin 11.5 GM/DL (12.0-16.0); Immature Granulocytes % 1.1 %; Immature Granulocytes Absolute 0.29 #; Lymphocytes # 1.5 10*3/uL (1.4-4.0); Lymphocytes % 5.8 % (21.3-54.2); Mean Corpuscular HGB Conc 31.9 GM/DL (32-36); Mean Corpuscular Volume 93.3 FL (87-102); Mean Platelet Volume 10.4 FL (9.6-12.0); Monocytes % 4.4 % (1.7-12.7); Neutrophils % 87.9 % (38.7-73.9); Platelet Count 290 T/CUMM (130-400); Red Blood Count 3.86 MC/CUMM (3.8-5.5); Red Cell Distribution Width 15.1 % (9.3-17.3); White Blood Count 26.7 T/CUMM (4-12)
[2020-01-09 04:34] LABS: ABG Base Excess 16.4 MMOL/L (-2.5-2.5); ABG HCO3 41.4 MMOL/L (20-26); ABG Oxygen Saturation 97.4 % (95-100); ABG PCO2 51.4 MM HG (35-48); ABG PH 7.524 (7.35-7.45); ABG PO2 94.9 MM HG (80-95)
[2020-01-09 04:50] LABS: Bilirubin,Total 1.1 MG/DL (0.2-1.0); Calcium 8.1 MG/DL (8.5-10.1); Osmolality,Calculated 289.8 MOS/KG (273-304); Total Protein 7.9 G/DL (6.4-8.3)
[2020-01-09 05:03] LABS: Eosinophils 1 % (0-10); Hypochromasia 1+; Lymphocytes 4 % (20-55); Microcytosis 1+; Platelet Estimate Adequate; Segmented Neutrophils 91 % (50-85); Total Cells Counted 100
[2020-01-09] MEDS: ACETAMINOPHEN 325 MG/10.15 ML UDCUP PO SCH ×3 (05:35→21:14)
[2020-01-09] MEDS: FUROSEMIDE 40 MG/4 ML VIAL IV SCH (07:50)
[2020-01-09] MEDS: PANTOPRAZOLE 40 MG VIAL IV SCH (07:50)
[2020-01-09] MEDS: ENOXAPARIN 80 MG/0.8 ML SYRINGE SUBCUT SCH (12:40)
[2020-01-09] MEDS: methylPREDNISolone SOD SUC 40 MG/1 ML VIAL IV SCH ×2 (13:30→20:51)
[2020-01-10] MEDS: INSULIN REGULAR 100 UNIT/ML SUBCUT SCH ×6 (00:13→20:23)
[2020-01-10] MEDS: ENOXAPARIN 80 MG/0.8 ML SYRINGE SUBCUT SCH ×2 (00:13→11:59)
[2020-01-10] MEDS: ALBUTEROL/IPRATROPIUM 3 ML NEB RESP TX SCH ×4 (01:07→19:15)
[2020-01-10 03:33] LABS: ABG Base Excess 13.5 MMOL/L (-2.5-2.5); ABG HCO3 37.4 MMOL/L (20-26); ABG Oxygen Saturation 98.2 % (95-100); ABG PCO2 54.2 MM HG (35-48); ABG PH 7.472 (7.35-7.45); ABG TCO2 35.3 MMOL/L (23-27); Allen Test Positive; Pt O2 Delivery Device Ventilator
[2020-01-10 04:31] LABS: Basophils % 0.1 % (0.0-0.8); Hematocrit 35.9 VOL% (35.7-47.0); Hemoglobin 11.5 GM/DL (12.0-16.0); Immature Granulocytes % 1.7 %; Immature Granulocytes Absolute 0.47 #; Lymphocytes # 1.3 10*3/uL (1.4-4.0); Lymphocytes % 4.6 % (21.3-54.2); Mean Platelet Volume 9.9 FL (9.6-12.0); Monocytes % 3.1 % (1.7-12.7); Neutrophils % 90.5 % (38.7-73.9); Platelet Count 326 T/CUMM (130-400); Red Blood Count 3.86 MC/CUMM (3.8-5.5); White Blood Count 28.4 T/CUMM (4-12)
[2020-01-10 04:58] LABS: Hypochromasia 1+; Lymphocytes 4 % (20-55); Microcytosis 1+; Segmented Neutrophils 93 % (50-85); Total Cells Counted 100
[2020-01-10 05:00] LABS: Albumin 1.9 G/DL (3.4-5.0); Bilirubin,Total 0.5 MG/DL (0.2-1.0); Calcium 8.5 MG/DL (8.5-10.1); Osmolality,Calculated 297.7 MOS/KG (273-304); Total Protein 8.2 G/DL (6.4-8.3)
[2020-01-10] MEDS: methylPREDNISolone SOD SUC 40 MG/1 ML VIAL IV SCH ×3 (05:22→22:22)
[2020-01-10] MEDS: ACETAMINOPHEN 325 MG/10.15 ML UDCUP PO SCH ×3 (06:05→22:22)
[2020-01-10] MEDS: fentaNYL 25 MCG/HR PATCH TRANSDERM SCH (09:05)
[2020-01-10] MEDS: PANTOPRAZOLE 40 MG VIAL IV SCH (09:05)
[2020-01-10] MEDS: POTASSIUM CHLORIDE 20 MEQ/15 ML UDCUP PER TUBE SCH (09:06)
[2020-01-10] MEDS: DILTIAZEM 60 MG TABLET PO SCH ×2 (13:28→22:22)
[2020-01-10] MEDS: POTASSIUM CHLORIDE 20 MEQ/15 ML UDCUP PO SCH (20:24)
[2020-01-11] MEDS: INSULIN REGULAR 100 UNIT/ML SUBCUT SCH ×6 (00:25→20:24)
[2020-01-11] MEDS: ENOXAPARIN 80 MG/0.8 ML SYRINGE SUBCUT SCH ×2 (00:26→12:38)
[2020-01-11] MEDS: ALBUTEROL/IPRATROPIUM 3 ML NEB RESP TX SCH ×4 (01:08→19:40)
[2020-01-11 03:41] LABS: Basophils # 0.1 10*3/uL (0.0-0.2); Basophils % 0.2 % (0.0-0.8); Hematocrit 37.8 VOL% (35.7-47.0); Hemoglobin 12.3 GM/DL (12.0-16.0); Immature Granulocytes % 1.3 %; Immature Granulocytes Absolute 0.36 #; Lymphocytes # 0.8 10*3/uL (1.4-4.0); Lymphocytes % 2.7 % (21.3-54.2); Mean Corpuscular HGB Conc 32.5 GM/DL (32-36); Mean Corpuscular Volume 92.4 FL (87-102); Mean Platelet Volume 9.9 FL (9.6-12.0); Monocytes % 4.5 % (1.7-12.7); Neutrophils % 91.3 % (38.7-73.9); Platelet Count 375 T/CUMM (130-400); Red Blood Count 4.09 MC/CUMM (3.8-5.5); White Blood Count 28.4 T/CUMM (4-12)
[2020-01-11 04:00] LABS: Bilirubin,Total 0.5 MG/DL (0.2-1.0); Calcium 8.9 MG/DL (8.5-10.1); Osmolality,Calculated 302.7 MOS/KG (273-304); Total Protein 8.7 G/DL (6.4-8.3)
[2020-01-11 04:21] LABS: Anisocytosis Slight; Hypersegmented Neutrophil Few; Hypochromasia 1+; Lymphocytes 3 % (20-55); Macrocytosis Slight; Platelet Estimate Normal; Segmented Neutrophils 92 % (50-85); Total Cells Counted 100
[2020-01-11] MEDS: methylPREDNISolone SOD SUC 40 MG/1 ML VIAL IV SCH ×3 (05:38→21:53)
[2020-01-11] MEDS: ACETAMINOPHEN 325 MG/10.15 ML UDCUP PO SCH ×3 (05:39→21:53)
[2020-01-11] MEDS: DILTIAZEM 60 MG TABLET PO SCH ×3 (05:39→21:53)
[2020-01-11] MEDS: POTASSIUM CHLORIDE 20 MEQ/15 ML UDCUP PO SCH ×2 (08:26→21:53)
[2020-01-11] MEDS: PANTOPRAZOLE 40 MG VIAL IV SCH (08:27)
[2020-01-11] MEDS: POTASSIUM CHLORIDE 20 MEQ/15 ML UDCUP PER TUBE SCH ×2 (08:46→16:11)
[2020-01-12] MEDS: ALBUTEROL/IPRATROPIUM 3 ML NEB RESP TX SCH ×4 (00:47→19:15)
[2020-01-12] MEDS: INSULIN REGULAR 100 UNIT/ML SUBCUT SCH ×6 (01:04→21:12)
[2020-01-12] MEDS: ENOXAPARIN 80 MG/0.8 ML SYRINGE SUBCUT SCH ×2 (01:05→11:47)
[2020-01-12 04:20] LABS: Basophils % 0.1 % (0.0-0.8); Hematocrit 37.5 VOL% (35.7-47.0); Hemoglobin 12.1 GM/DL (12.0-16.0); Immature Granulocytes % 1.1 %; Immature Granulocytes Absolute 0.21 #; Lymphocytes # 0.8 10*3/uL (1.4-4.0); Lymphocytes % 3.9 % (21.3-54.2); Mean Corpuscular HGB Conc 32.3 GM/DL (32-36); Mean Corpuscular Volume 92.1 FL (87-102); Mean Platelet Volume 9.8 FL (9.6-12.0); Monocytes % 6.2 % (1.7-12.7); Neutrophils % 88.7 % (38.7-73.9); Platelet Count 380 T/CUMM (130-400); Red Blood Count 4.07 MC/CUMM (3.8-5.5); Red Cell Distribution Width 15.1 % (9.3-17.3); White Blood Count 19.3 T/CUMM (4-12)
[2020-01-12 04:51] LABS: Bilirubin,Total 0.6 MG/DL (0.2-1.0); Osmolality,Calculated 311.1 MOS/KG (273-304); Total Protein 8.2 G/DL (6.4-8.3)
[2020-01-12] MEDS: DILTIAZEM 60 MG TABLET PO SCH ×3 (06:03→21:14)
[2020-01-12] MEDS: methylPREDNISolone SOD SUC 40 MG/1 ML VIAL IV SCH ×3 (06:03→21:13)
[2020-01-12] MEDS: ACETAMINOPHEN 325 MG/10.15 ML UDCUP PO SCH ×3 (06:04→21:15)
[2020-01-12 07:13] LABS: Hypochromasia 2+; Lymphocytes 4 % (20-55); Polychromasia Slight; Segmented Neutrophils 83 % (50-85); Total Cells Counted 100
[2020-01-12 07:14] LABS: Platelet Estimate Adequate
[2020-01-12] MEDS: POTASSIUM CHLORIDE 20 MEQ/15 ML UDCUP PO SCH ×2 (09:34→21:16)
[2020-01-12] MEDS: PANTOPRAZOLE 40 MG VIAL IV SCH (09:35)
[2020-01-13] MEDS: ALBUTEROL/IPRATROPIUM 3 ML NEB RESP TX SCH ×4 (00:25→19:40)
[2020-01-13] MEDS: INSULIN REGULAR 100 UNIT/ML SUBCUT SCH ×6 (01:56→21:44)
[2020-01-13] MEDS: ENOXAPARIN 80 MG/0.8 ML SYRINGE SUBCUT SCH ×2 (01:56→11:40)
[2020-01-13 05:20] LABS: Basophils % 0.1 % (0.0-0.8); Hematocrit 36.8 VOL% (35.7-47.0); Hemoglobin 11.7 GM/DL (12.0-16.0); Immature Granulocytes % 0.8 %; Immature Granulocytes Absolute 0.17 #; Lymphocytes # 0.8 10*3/uL (1.4-4.0); Lymphocytes % 4.1 % (21.3-54.2); Mean Corpuscular HGB Conc 31.8 GM/DL (32-36); Mean Corpuscular Volume 93.4 FL (87-102); Mean Platelet Volume 10.1 FL (9.6-12.0); Monocytes % 6.5 % (1.7-12.7); Neutrophils % 88.5 % (38.7-73.9); Platelet Count 372 T/CUMM (130-400); Red Blood Count 3.94 MC/CUMM (3.8-5.5); Red Cell Distribution Width 15.2 % (9.3-17.3); White Blood Count 20.6 T/CUMM (4-12)
[2020-01-13] MEDS: ACETAMINOPHEN 325 MG/10.15 ML UDCUP PO SCH ×3 (05:43→21:44)
[2020-01-13] MEDS: DILTIAZEM 60 MG TABLET PO SCH ×3 (05:43→21:43)
[2020-01-13] MEDS: methylPREDNISolone SOD SUC 40 MG/1 ML VIAL IV SCH ×3 (05:43→21:45)
[2020-01-13 05:44] LABS: Albumin 2.1 G/DL (3.4-5.0); Bilirubin,Total 1.1 MG/DL (0.2-1.0); Calcium 8.9 MG/DL (8.5-10.1); Osmolality,Calculated 316.6 MOS/KG (273-304)
[2020-01-13 05:48] LABS: Hypochromasia 2+; Lymphocytes 7 % (20-55); Segmented Neutrophils 90 % (50-85); Target Cells Slight; Total Cells Counted 100
[2020-01-13 05:49] LABS: Microcytosis 1+; Platelet Estimate Normal
[2020-01-13] MEDS: PANTOPRAZOLE 40 MG VIAL IV SCH (08:50)
[2020-01-13] MEDS: POTASSIUM CHLORIDE 20 MEQ/15 ML UDCUP PO SCH ×2 (08:50→21:44)
[2020-01-13] MEDS ORDERED: oxyCODONE/ACETAMINOPHEN 5-325 MG TABLET PO PRN (12:05)
[2020-01-13] MEDS: guaiFENesin 200 MG/10 ML UDCUP PO PRN (12:15)
[2020-01-13] MEDS: fentaNYL 12 MCG/HR PATCH TRANSDERM SCH (12:45)
[2020-01-14] MEDS: ENOXAPARIN 80 MG/0.8 ML SYRINGE SUBCUT SCH ×2 (00:19→14:59)
[2020-01-14] MEDS: ALBUTEROL/IPRATROPIUM 3 ML NEB RESP TX SCH ×4 (00:25→19:23)
[2020-01-14] MEDS: INSULIN REGULAR 100 UNIT/ML SUBCUT SCH ×6 (00:26→21:25)
[2020-01-14] MEDS: methylPREDNISolone SOD SUC 40 MG/1 ML VIAL IV SCH ×3 (05:50→21:26)
[2020-01-14] MEDS: DILTIAZEM 60 MG TABLET PO SCH ×3 (05:53→21:26)
[2020-01-14] MEDS: ACETAMINOPHEN 325 MG/10.15 ML UDCUP PO SCH ×3 (05:53→21:25)
[2020-01-14 06:10] LABS: Basophils % 0.1 % (0.0-0.8); Hematocrit 36.9 VOL% (35.7-47.0); Hemoglobin 11.6 GM/DL (12.0-16.0); Immature Granulocytes Absolute 0.21 #; Lymphocytes % 4.6 % (21.3-54.2); Mean Corpuscular HGB Conc 31.4 GM/DL (32-36); Mean Corpuscular Volume 94.1 FL (87-102); Mean Platelet Volume 10.5 FL (9.6-12.0); Monocytes % 4.4 % (1.7-12.7); Neutrophils % 89.9 % (38.7-73.9); Platelet Count 351 T/CUMM (130-400); Red Blood Count 3.92 MC/CUMM (3.8-5.5); Red Cell Distribution Width 15.7 % (9.3-17.3)
[2020-01-14 06:31] LABS: Albumin 2.2 G/DL (3.4-5.0); Bilirubin,Total 0.9 MG/DL (0.2-1.0); Calcium 8.9 MG/DL (8.5-10.1); Osmolality,Calculated 315.4 MOS/KG (273-304); Total Protein 7.8 G/DL (6.4-8.3)
[2020-01-14 06:33] LABS: Band Neutrophils 1 % (0-10); Hypochromasia 1+; Lymphocytes 3 % (20-55); Microcytosis 1+; Ovalocytes Slight; Platelet Estimate Adequate; Segmented Neutrophils 89 % (50-85); Total Cells Counted 100
[2020-01-14] MEDS: PANTOPRAZOLE 40 MG VIAL IV SCH (08:32)
[2020-01-14] MEDS: POTASSIUM CHLORIDE 20 MEQ/15 ML UDCUP PO SCH ×2 (08:34→21:25)
[2020-01-14] MEDS: DEXT 5% NACL 0.45% KCL 20 MEQ 20 MEQ/1,000 ML BAG IV SCH ×3 (10:41→19:41)
[2020-01-14] MEDS: acetaZOLAMIDE 250 MG TABLET PO SCH (17:24)
[2020-01-15] MEDS: ALBUTEROL/IPRATROPIUM 3 ML NEB RESP TX SCH ×4 (00:53→20:22)
[2020-01-15] MEDS: ENOXAPARIN 80 MG/0.8 ML SYRINGE SUBCUT SCH ×2 (01:02→11:56)
[2020-01-15] MEDS: INSULIN REGULAR 100 UNIT/ML SUBCUT SCH ×6 (01:02→20:29)
[2020-01-15] MEDS: DEXT 5% NACL 0.45% KCL 20 MEQ 20 MEQ/1,000 ML BAG IV SCH ×3 (04:22→20:16)
[2020-01-15] MEDS: DILTIAZEM 60 MG TABLET PO SCH ×3 (05:38→21:17)
[2020-01-15] MEDS: acetaZOLAMIDE 250 MG TABLET PO SCH ×2 (05:39→17:44)
[2020-01-15] MEDS: ACETAMINOPHEN 325 MG/10.15 ML UDCUP PO SCH ×3 (05:40→21:16)
[2020-01-15] MEDS: methylPREDNISolone SOD SUC 40 MG/1 ML VIAL IV SCH ×3 (05:43→21:17)
[2020-01-15 09:22] LABS: Basophils % 0.1 % (0.0-0.8); Hematocrit 34.6 VOL% (35.7-47.0); Immature Granulocytes % 0.8 %; Immature Granulocytes Absolute 0.21 #; Lymphocytes # 0.7 10*3/uL (1.4-4.0); Lymphocytes % 2.7 % (21.3-54.2); Mean Corpuscular HGB Conc 31.8 GM/DL (32-36); Mean Corpuscular Volume 93.5 FL (87-102); Mean Platelet Volume 10.6 FL (9.6-12.0); Monocytes % 5.3 % (1.7-12.7); Neutrophils % 91.1 % (38.7-73.9); Platelet Count 345 T/CUMM (130-400); Red Cell Distribution Width 15.7 % (9.3-17.3); White Blood Count 24.9 T/CUMM (4-12)
[2020-01-15 09:38] LABS: Lymphocytes 1 % (20-55); Platelet Estimate Adequate; Segmented Neutrophils 96 % (50-85); Total Cells Counted 100
[2020-01-15 09:39] LABS: Hypochromasia Slight; Microcytosis Slight
[2020-01-15 09:45] LABS: Albumin 2.2 G/DL (3.4-5.0); Calcium 8.6 MG/DL (8.5-10.1); Osmolality,Calculated 314.8 MOS/KG (273-304); Total Protein 7.5 G/DL (6.4-8.3)
[2020-01-15] MEDS: PANTOPRAZOLE 40 MG VIAL IV SCH (09:45)
[2020-01-15] MEDS: POTASSIUM CHLORIDE 20 MEQ/15 ML UDCUP PO SCH ×2 (12:18→21:16)
[2020-01-16] MEDS: ENOXAPARIN 80 MG/0.8 ML SYRINGE SUBCUT SCH ×3 (00:24→21:05)
[2020-01-16] MEDS: ALBUTEROL/IPRATROPIUM 3 ML NEB RESP TX SCH ×4 (00:54→21:10)
[2020-01-16] MEDS: INSULIN REGULAR 100 UNIT/ML SUBCUT SCH ×6 (01:28→21:06)
[2020-01-16] MEDS: DEXT 5% NACL 0.45% KCL 20 MEQ 20 MEQ/1,000 ML BAG IV SCH ×3 (04:05→21:04)
[2020-01-16] MEDS: ACETAMINOPHEN 325 MG/10.15 ML UDCUP PO SCH ×3 (05:39→21:09)
[2020-01-16] MEDS: acetaZOLAMIDE 250 MG TABLET PO SCH ×2 (05:39→17:56)
[2020-01-16] MEDS: DILTIAZEM 60 MG TABLET PO SCH ×3 (05:39→21:04)
[2020-01-16] MEDS: methylPREDNISolone SOD SUC 40 MG/1 ML VIAL IV SCH ×3 (05:40→21:04)
[2020-01-16 06:15] LABS: Basophils % 0.1 % (0.0-0.8); Hematocrit 33.2 VOL% (35.7-47.0); Hemoglobin 10.8 GM/DL (12.0-16.0); Immature Granulocytes % 0.9 %; Immature Granulocytes Absolute 0.22 #; Lymphocytes # 0.7 10*3/uL (1.4-4.0); Lymphocytes % 2.9 % (21.3-54.2); Mean Corpuscular HGB Conc 32.5 GM/DL (32-36); Mean Corpuscular Volume 94.1 FL (87-102); Mean Platelet Volume 10.8 FL (9.6-12.0); Monocytes % 6.3 % (1.7-12.7); Neutrophils % 89.8 % (38.7-73.9); Platelet Count 288 T/CUMM (130-400); Red Blood Count 3.53 MC/CUMM (3.8-5.5); Red Cell Distribution Width 15.9 % (9.3-17.3); White Blood Count 23.3 T/CUMM (4-12)
[2020-01-16 06:42] LABS: Albumin 2.2 G/DL (3.4-5.0); Bilirubin,Total 0.9 MG/DL (0.2-1.0); Calcium 8.2 MG/DL (8.5-10.1); Total Protein 7.2 G/DL (6.4-8.3)
[2020-01-16 07:53] LABS: Hypochromasia 1+; Lymphocytes 2 % (20-55); Segmented Neutrophils 95 % (50-85); Total Cells Counted 100
[2020-01-16 07:54] LABS: Microcytosis 1+; Ovalocytes Slight; Platelet Estimate Normal; Target Cells Slight
[2020-01-16] MEDS: POTASSIUM CHLORIDE 20 MEQ/15 ML UDCUP PO SCH ×2 (08:05→21:05)
[2020-01-16] MEDS: guaiFENesin 200 MG/10 ML UDCUP PO PRN ×2 (08:05→17:56)
[2020-01-16] MEDS: PANTOPRAZOLE 40 MG VIAL IV SCH (08:06)
[2020-01-16] MEDS: fentaNYL 12 MCG/HR PATCH TRANSDERM SCH (10:18)
[2020-01-16] MEDS: HYDROmorphone 2 MG/1 ML VIAL IV PRN (16:30)
[2020-01-17] MEDS: ALBUTEROL/IPRATROPIUM 3 ML NEB RESP TX SCH ×4 (01:02→19:50)
[2020-01-17] MEDS: INSULIN REGULAR 100 UNIT/ML SUBCUT SCH ×6 (01:23→21:53)
[2020-01-17 05:21] LABS: Basophils % 0.1 % (0.0-0.8); Hematocrit 30.6 VOL% (35.7-47.0); Hemoglobin 9.7 GM/DL (12.0-16.0); Lymphocytes # 1.1 10*3/uL (1.4-4.0); Lymphocytes % 5.4 % (21.3-54.2); Mean Corpuscular HGB Conc 31.7 GM/DL (32-36); Mean Platelet Volume 11.2 FL (9.6-12.0); Monocytes % 5.5 % (1.7-12.7); Platelet Count 240 T/CUMM (130-400); Red Blood Count 3.22 MC/CUMM (3.8-5.5); Red Cell Distribution Width 15.9 % (9.3-17.3); White Blood Count 20.6 T/CUMM (4-12)
[2020-01-17 05:48] LABS: Albumin 1.9 G/DL (3.4-5.0); Bilirubin,Total 0.9 MG/DL (0.2-1.0); Osmolality,Calculated 299.3 MOS/KG (273-304); Total Protein 6.1 G/DL (6.4-8.3)
[2020-01-17] MEDS: DILTIAZEM 60 MG TABLET PO SCH ×3 (06:04→21:52)
[2020-01-17] MEDS: acetaZOLAMIDE 250 MG TABLET PO SCH ×2 (06:05→18:21)
[2020-01-17] MEDS: ACETAMINOPHEN 325 MG/10.15 ML UDCUP PO SCH ×2 (06:06→15:44)
[2020-01-17] MEDS: methylPREDNISolone SOD SUC 40 MG/1 ML VIAL IV SCH ×3 (06:08→21:55)
[2020-01-17 06:12] LABS: Hypochromasia 1+
[2020-01-17 06:13] LABS: Anisocytosis 1+; Microcytosis 1+; Target Cells Slight
[2020-01-17 06:14] LABS: Platelet Estimate Normal
[2020-01-17] MEDS: ENOXAPARIN 80 MG/0.8 ML SYRINGE SUBCUT SCH ×2 (08:19→21:53)
[2020-01-17] MEDS: PANTOPRAZOLE 40 MG VIAL IV SCH (08:19)
[2020-01-17] MEDS: POTASSIUM CHLORIDE 20 MEQ/15 ML UDCUP PO SCH ×2 (08:20→21:53)
[2020-01-17] MEDS: DEXTROSE 5% NACL 0.45% 1,000 ML IV SCH ×3 (10:20→22:07)
[2020-01-17] MEDS ORDERED: LIDOCAINE 2% VISCOUS 100 ML BOTTLE ONE (15:08)
[2020-01-17] MEDS: HYDROmorphone 2 MG/1 ML VIAL IV PRN (21:53)
[2020-01-18] MEDS: INSULIN REGULAR 100 UNIT/ML SUBCUT SCH ×6 (02:20→21:47)
[2020-01-18] MEDS: ALBUTEROL/IPRATROPIUM 3 ML NEB RESP TX SCH ×4 (02:32→19:06)
[2020-01-18] MEDS: methylPREDNISolone SOD SUC 40 MG/1 ML VIAL IV SCH ×3 (06:05→21:43)
[2020-01-18] MEDS: acetaZOLAMIDE 250 MG TABLET PO SCH ×2 (06:06→17:04)
[2020-01-18] MEDS: DILTIAZEM 60 MG TABLET PO SCH ×3 (06:06→21:42)
[2020-01-18 06:33] LABS: Basophils % 0.1 % (0.0-0.8); Hematocrit 31.1 VOL% (35.7-47.0); Hemoglobin 10.4 GM/DL (12.0-16.0); Immature Granulocytes % 1.2 %; Immature Granulocytes Absolute 0.31 #; Lymphocytes # 0.6 10*3/uL (1.4-4.0); Lymphocytes % 2.3 % (21.3-54.2); Mean Corpuscular HGB Conc 33.4 GM/DL (32-36); Mean Corpuscular Volume 90.1 FL (87-102); Mean Platelet Volume 10.9 FL (9.6-12.0); Monocytes % 2.7 % (1.7-12.7); Neutrophils % 93.7 % (38.7-73.9); Platelet Count 257 T/CUMM (130-400); Red Blood Count 3.45 MC/CUMM (3.8-5.5); Red Cell Distribution Width 15.3 % (9.3-17.3); White Blood Count 25.9 T/CUMM (4-12)
[2020-01-18] MEDS: DEXTROSE 5% NACL 0.45% 1,000 ML IV SCH ×3 (06:43→21:49)
[2020-01-18 06:57] LABS: Albumin 1.9 G/DL (3.4-5.0); Bilirubin,Total 1.4 MG/DL (0.2-1.0); Calcium 7.8 MG/DL (8.5-10.1); Osmolality,Calculated 293.8 MOS/KG (273-304); Total Protein 6.5 G/DL (6.4-8.3)
[2020-01-18 07:02] LABS: Hypochromasia 1+; Lymphocytes 2 % (20-55); Microcytosis 1+; Platelet Estimate Adequate; Segmented Neutrophils 96 % (50-85); Total Cells Counted 100
[2020-01-18] MEDS: POTASSIUM CHLORIDE 20 MEQ/15 ML UDCUP PO SCH ×2 (11:11→21:43)
[2020-01-18] MEDS: PANTOPRAZOLE 40 MG VIAL IV SCH (11:12)
[2020-01-18] MEDS: ENOXAPARIN 80 MG/0.8 ML SYRINGE SUBCUT SCH ×2 (11:12→21:47)
[2020-01-18] MEDS: cloNIDine 0.1 MG TABLET PO PRN (21:42)
[2020-01-19] MEDS: ALBUTEROL/IPRATROPIUM 3 ML NEB RESP TX SCH ×4 (01:23→18:47)
[2020-01-19] MEDS: INSULIN REGULAR 100 UNIT/ML SUBCUT SCH ×6 (01:24→21:36)
[2020-01-19] MEDS: acetaZOLAMIDE 250 MG TABLET PO SCH ×2 (04:53→17:52)
[2020-01-19] MEDS: cloNIDine 0.1 MG TABLET PO PRN (04:53)
[2020-01-19] MEDS: HYDROmorphone 2 MG/1 ML VIAL IV PRN (04:55)
[2020-01-19] MEDS: methylPREDNISolone SOD SUC 40 MG/1 ML VIAL IV SCH ×3 (04:57→21:36)
[2020-01-19] MEDS: DILTIAZEM 60 MG TABLET PO SCH ×3 (05:00→21:34)
[2020-01-19 06:23] LABS: Basophils # 0.1 10*3/uL (0.0-0.2); Basophils % 0.2 % (0.0-0.8); Hematocrit 30.3 VOL% (35.7-47.0); Hemoglobin 10.4 GM/DL (12.0-16.0); Immature Granulocytes % 1.8 %; Immature Granulocytes Absolute 0.71 #; Lymphocytes # 0.6 10*3/uL (1.4-4.0); Lymphocytes % 1.6 % (21.3-54.2); Mean Corpuscular HGB Conc 34.3 GM/DL (32-36); Mean Corpuscular Volume 89.1 FL (87-102); Mean Platelet Volume 11.6 FL (9.6-12.0); Monocytes % 3.4 % (1.7-12.7); Platelet Count 279 T/CUMM (130-400); Red Cell Distribution Width 14.9 % (9.3-17.3); White Blood Count 39.7 T/CUMM (4-12)
[2020-01-19] MEDS: DEXTROSE 5% NACL 0.45% 1,000 ML IV SCH ×3 (06:23→17:53)
[2020-01-19 06:49] LABS: Albumin 1.8 G/DL (3.4-5.0); Bilirubin,Total 1.1 MG/DL (0.2-1.0); Calcium 7.5 MG/DL (8.5-10.1); Osmolality,Calculated 284.2 MOS/KG (273-304); Total Protein 6.3 G/DL (6.4-8.3)
[2020-01-19 06:51] LABS: Band Neutrophils 1 % (0-10); Hypochromasia 1+; Lymphocytes 1 % (20-55); Microcytosis 1+; Platelet Estimate Adequate; Segmented Neutrophils 95 % (50-85); Total Cells Counted 100
[2020-01-19] MEDS: POTASSIUM CHLORIDE 20 MEQ/15 ML UDCUP PO SCH ×2 (10:29→21:33)
[2020-01-19] MEDS: ENOXAPARIN 80 MG/0.8 ML SYRINGE SUBCUT SCH ×2 (10:29→21:36)
[2020-01-19] MEDS: PANTOPRAZOLE 40 MG VIAL IV SCH (10:30)
[2020-01-19] MEDS: fentaNYL 12 MCG/HR PATCH TRANSDERM SCH (13:03)
[2020-01-20] MEDS: cloNIDine 0.1 MG TABLET PO PRN (01:31)
[2020-01-20] MEDS: HYDROmorphone 2 MG/1 ML VIAL IV PRN ×3 (01:31→21:48)
[2020-01-20] MEDS: INSULIN REGULAR 100 UNIT/ML SUBCUT SCH ×6 (01:31→23:31)
[2020-01-20] MEDS: ALBUTEROL/IPRATROPIUM 3 ML NEB RESP TX SCH ×4 (02:27→19:22)
[2020-01-20] MEDS: methylPREDNISolone SOD SUC 40 MG/1 ML VIAL IV SCH ×3 (06:06→21:47)
[2020-01-20] MEDS: DILTIAZEM 60 MG TABLET PO SCH ×3 (06:07→21:49)
[2020-01-20] MEDS: acetaZOLAMIDE 250 MG TABLET PO SCH ×2 (06:08→17:17)
[2020-01-20 06:15] LABS: Basophils # 0.1 10*3/uL (0.0-0.2); Basophils % 0.2 % (0.0-0.8); Hematocrit 28.3 VOL% (35.7-47.0); Hemoglobin 9.6 GM/DL (12.0-16.0); Immature Granulocytes % 2.8 %; Immature Granulocytes Absolute 1.24 #; Lymphocytes # 0.6 10*3/uL (1.4-4.0); Lymphocytes % 1.3 % (21.3-54.2); Mean Corpuscular HGB Conc 33.9 GM/DL (32-36); Mean Corpuscular Volume 90.4 FL (87-102); Mean Platelet Volume 11.2 FL (9.6-12.0); Monocytes % 4.2 % (1.7-12.7); Neutrophils % 91.5 % (38.7-73.9); Platelet Count 249 T/CUMM (130-400); Red Blood Count 3.13 MC/CUMM (3.8-5.5); Red Cell Distribution Width 15.2 % (9.3-17.3)
[2020-01-20 06:18] LABS: White Blood Count 44.7 T/CUMM (4-12)
[2020-01-20 06:37] LABS: Albumin 1.7 G/DL (3.4-5.0); Bilirubin,Total 1.8 MG/DL (0.2-1.0); Calcium 7.6 MG/DL (8.5-10.1); Osmolality,Calculated 282.1 MOS/KG (273-304); Total Protein 5.9 G/DL (6.4-8.3)
[2020-01-20 06:41] LABS: Hypochromasia 1+; Lymphocytes 2 % (20-55); Microcytosis 1+; Platelet Estimate Adequate; Segmented Neutrophils 97 % (50-85); Total Cells Counted 100
[2020-01-20] MEDS ORDERED: cloNIDine 0.1 MG/24 HR PATCH TRANSDERM SCH (09:00)
[2020-01-20] MEDS: PANTOPRAZOLE 40 MG VIAL IV SCH (09:47)
[2020-01-20] MEDS: ENOXAPARIN 80 MG/0.8 ML SYRINGE SUBCUT SCH ×2 (09:48→21:47)
[2020-01-20] MEDS: POTASSIUM CHLORIDE 20 MEQ/15 ML UDCUP PO SCH ×2 (10:18→21:46)
[2020-01-20] MEDS: DEXTROSE 5% NACL 0.45% 1,000 ML IV SCH (12:10)
[2020-01-21] MEDS: INSULIN REGULAR 100 UNIT/ML SUBCUT SCH ×6 (01:56→22:11)
[2020-01-21] MEDS: ALBUTEROL/IPRATROPIUM 3 ML NEB RESP TX SCH ×4 (02:02→19:17)
[2020-01-21] MEDS: methylPREDNISolone SOD SUC 40 MG/1 ML VIAL IV SCH ×3 (06:36→21:46)
[2020-01-21] MEDS: acetaZOLAMIDE 250 MG TABLET PO SCH ×2 (06:36→17:00)
[2020-01-21 06:43] LABS: Basophils % 0.1 % (0.0-0.8); Hematocrit 28.9 VOL% (35.7-47.0); Hemoglobin 9.9 GM/DL (12.0-16.0); Immature Granulocytes Absolute 0.99 #; Lymphocytes # 0.5 10*3/uL (1.4-4.0); Mean Corpuscular HGB Conc 34.3 GM/DL (32-36); Mean Platelet Volume 13.3 FL (9.6-12.0); Monocytes % 3.8 % (1.7-12.7); Neutrophils % 93.1 % (38.7-73.9); Red Blood Count 3.21 MC/CUMM (3.8-5.5); Red Cell Distribution Width 15.4 % (9.3-17.3)
[2020-01-21 06:51] LABS: Platelet Count 118 T/CUMM (130-400); White Blood Count 48.4 T/CUMM (4-12)
[2020-01-21 06:53] LABS: Albumin 1.6 G/DL (3.4-5.0); Bilirubin,Total 1.3 MG/DL (0.2-1.0); Total Protein 6.4 G/DL (6.4-8.3)
[2020-01-21 06:59] LABS: Lymphocytes 2 % (20-55); Segmented Neutrophils 94 % (50-85); Total Cells Counted 100
[2020-01-21 07:00] LABS: Hypochromasia 2+; Microcytosis 1+
[2020-01-21] MEDS: DILTIAZEM 60 MG TABLET PO SCH ×3 (07:04→21:47)
[2020-01-21] MEDS: SODIUM CHLORIDE 0.9% 1,000 ML IV SCH (09:34)
[2020-01-21] MEDS: ENOXAPARIN 80 MG/0.8 ML SYRINGE SUBCUT SCH ×2 (09:34→21:46)
[2020-01-21] MEDS: PANTOPRAZOLE 40 MG VIAL IV SCH (09:34)
[2020-01-21] MEDS: POTASSIUM CHLORIDE 20 MEQ/15 ML UDCUP PO SCH ×2 (09:35→21:47)
[2020-01-21] MEDS: DEXTROSE 5% NACL 0.45% 1,000 ML IV SCH (11:11)
[2020-01-21 15:01] LABS: Calcium 7.4 MG/DL (8.5-10.1); Osmolality,Calculated 285.8 MOS/KG (273-304)
[2020-01-22] MEDS: ALBUTEROL/IPRATROPIUM 3 ML NEB RESP TX SCH ×4 (00:23→19:27)
[2020-01-22] MEDS: INSULIN REGULAR 100 UNIT/ML SUBCUT SCH ×6 (02:31→21:02)
[2020-01-22] MEDS: acetaZOLAMIDE 250 MG TABLET PO SCH ×2 (05:20→17:22)
[2020-01-22] MEDS: DILTIAZEM 60 MG TABLET PO SCH ×3 (05:20→21:04)
[2020-01-22] MEDS: methylPREDNISolone SOD SUC 40 MG/1 ML VIAL IV SCH ×3 (05:20→21:03)
[2020-01-22] MEDS: SODIUM CHLORIDE 0.9% 1,000 ML IV SCH (06:11)
[2020-01-22] MEDS ORDERED: FUROSEMIDE 40 MG/4 ML VIAL IV ONE ×2 (08:23→19:12)
[2020-01-22 08:43] LABS: Basophils # 0.1 10*3/uL (0.0-0.2); Basophils % 0.2 % (0.0-0.8); Hematocrit 26.4 VOL% (35.7-47.0); Immature Granulocytes % 1.4 %; Immature Granulocytes Absolute 0.54 #; Lymphocytes # 0.2 10*3/uL (1.4-4.0); Lymphocytes % 0.5 % (21.3-54.2); Mean Corpuscular HGB Conc 34.1 GM/DL (32-36); Mean Corpuscular Volume 90.1 FL (87-102); Mean Platelet Volume 11.1 FL (9.6-12.0); Monocytes % 4.4 % (1.7-12.7); Neutrophils % 93.5 % (38.7-73.9); Platelet Count 295 T/CUMM (130-400); Red Blood Count 2.93 MC/CUMM (3.8-5.5); Red Cell Distribution Width 15.6 % (9.3-17.3); White Blood Count 38.5 T/CUMM (4-12)
[2020-01-22 09:04] LABS: Hypochromasia 1+; Lymphocytes 2 % (20-55); Platelet Estimate Adequate; Segmented Neutrophils 94 % (50-85); Total Cells Counted 100
[2020-01-22 09:05] LABS: Microcytosis 1+
[2020-01-22 09:10] LABS: Albumin 1.8 G/DL (3.4-5.0); Bilirubin,Total 0.8 MG/DL (0.2-1.0); Calcium 7.5 MG/DL (8.5-10.1); Osmolality,Calculated 293.7 MOS/KG (273-304); Total Protein 6.1 G/DL (6.4-8.3)
[2020-01-22] MEDS: ENOXAPARIN 80 MG/0.8 ML SYRINGE SUBCUT SCH ×2 (10:46→21:03)
[2020-01-22] MEDS: PANTOPRAZOLE 40 MG VIAL IV SCH (10:47)
[2020-01-22] MEDS: POTASSIUM CHLORIDE 20 MEQ/15 ML UDCUP PO SCH ×2 (10:50→21:03)
[2020-01-22] MEDS: fentaNYL 12 MCG/HR PATCH TRANSDERM SCH (13:13)
[2020-01-23] MEDS: ALBUTEROL/IPRATROPIUM 3 ML NEB RESP TX SCH ×4 (01:46→19:05)
[2020-01-23] MEDS: INSULIN REGULAR 100 UNIT/ML SUBCUT SCH ×3 (02:09→10:06)
[2020-01-23] MEDS ORDERED: FUROSEMIDE 40 MG/4 ML VIAL IV ONE (03:47)
[2020-01-23 05:04] LABS: Basophils # 0.1 10*3/uL (0.0-0.2); Basophils % 0.2 % (0.0-0.8); Hematocrit 30.9 VOL% (35.7-47.0); Immature Granulocytes % 1.4 %; Immature Granulocytes Absolute 0.64 #; Lymphocytes # 0.9 10*3/uL (1.4-4.0); Lymphocytes % 1.9 % (21.3-54.2); Mean Corpuscular HGB Conc 32.4 GM/DL (32-36); Mean Corpuscular Volume 93.1 FL (87-102); Mean Platelet Volume 11.5 FL (9.6-12.0); Monocytes % 5.1 % (1.7-12.7); Neutrophils % 91.4 % (38.7-73.9); Red Blood Count 3.32 MC/CUMM (3.8-5.5); Red Cell Distribution Width 16.3 % (9.3-17.3)
[2020-01-23 05:08] LABS: Platelet Count 356 T/CUMM (130-400); White Blood Count 44.8 T/CUMM (4-12)
[2020-01-23 05:25] LABS: Albumin 1.9 G/DL (3.4-5.0); Bilirubin,Total 1.8 MG/DL (0.2-1.0); Calcium 7.4 MG/DL (8.5-10.1); Total Protein 6.7 G/DL (6.4-8.3)
[2020-01-23 05:28] LABS: Hypochromasia 1+; Lymphocytes 1 % (20-55); Microcytosis 1+; Ovalocytes Slight; Platelet Estimate Adequate; Segmented Neutrophils 95 % (50-85); Total Cells Counted 100
[2020-01-23] MEDS: acetaZOLAMIDE 250 MG TABLET PO SCH ×2 (05:54→17:15)
[2020-01-23] MEDS: DILTIAZEM 60 MG TABLET PO SCH ×2 (05:54→14:18)
[2020-01-23] MEDS: methylPREDNISolone SOD SUC 40 MG/1 ML VIAL IV SCH ×2 (06:42→14:22)
[2020-01-23] MEDS: POTASSIUM CHLORIDE 20 MEQ/15 ML UDCUP PO SCH (09:50)
[2020-01-23] MEDS: ENOXAPARIN 80 MG/0.8 ML SYRINGE SUBCUT SCH (09:51)
[2020-01-23] MEDS: PANTOPRAZOLE 40 MG VIAL IV SCH (10:08)
[2020-01-23] MEDS ORDERED: FUROSEMIDE 40 MG/4 ML VIAL IV SCH (16:00)
[2020-01-23 20:03] VITALS: BP 60/36
== END 2020-01-23 22:10 | disposition expired | DRG 736 ==
LOC: N.ED 09:50 → N.EDINP 12:56 → N.4E 13:37 → N.ICU 12-28 08:57 → N.4E 01-13 18:05 → N.TELES 01-17 16:38
PROVIDERS: ADMIT Specialist; ATTEND Specialist